=== PATIENT | male | born 1935 | race Caucasian/White ===

== ENCOUNTER 2018-01-03 12:59 | Emergency (ER) | payer OTHER ==
[~2018-01-03] VITALS: Ht 170.2 cm; Wt 93.9 kg
[~2018-01-03 12:59] MED LIST: GLYB5TAB7 PO; IBUP-1017 PO; LISI-600 PO; SIMV40TA5 PO
[2018-01-03 13:39] VITALS: BP_SYST 95
--- NOTE | 2018-01-03 13:50 | NUR ---
Placed in room 4 . Placed on rubber washer, blood pressure machine and pulse oximeter. To gown for exam. Side rails up. Report received from EDUARD Ramirez.
[2018-01-03 14:14] LABS: ANION GAP 11 (5-15); CALCIUM 9.5 mg/dL (8.4-11.0); CHLORIDE 100 mmol/L (98-107); CREATININE 1.59 mg/dL (0.55-1.30); GLUCOSE 81 mg/dL (70-99); POTASSIUM 4.7 mmol/L (3.5-5.1); SODIUM SERUM 135 mmol/L (136-145); UREA NITROGEN, BLOOD 25 mg/dL (8-21)
[2018-01-03] MEDS ORDERED: KETOROLAC TROMETHAMINE 30 MG VIAL IM ONE (14:15)
[2018-01-03 14:18] LABS: HEMATOCRIT 40.3 % (36-54); HEMOGLOBIN 13.1 g/dL (14.0-18.0); MEAN CORPUSCULAR HEMOGLOBIN 30 pg (27-31); MEAN CORPUSCULAR HGB CONC 33 % (32-36); MEAN CORPUSCULAR VOLUME 91 fL (79.0-98.0); PLATELET COUNT (AUTO) 255 K/uL (130-430); RED BLOOD CELL COUNT(AUTO) 4.42 MIL/uL (4.2-6.2); RED CELL DISTRIBUTION WIDTH 13.2 % (9.0-15.0); WHITE BLOOD COUNT (AUTO) 11.8 K/uL (4.8-10.8)
[2018-01-03 14:19] LABS: ALANINE AMINOTRANSFERASE 48 U/L (12-78); ALBUMIN 2.9 g/dL (3.4-4.8); ASPARTATE AMINOTRANSFERASE 35 U/L (10-37); TOTAL BILIRUBIN 0.6 mg/dL (0.0-1.0)
--- NOTE | 2018-01-03 14:27 | NUR ---
ER at bedside examining patient.
--- NOTE | 2018-01-03 14:27 | NUR ---
Pt presents to ED with body achesx 1 day. is not sure if he had a temperature- She didnt have a thermometer, but he felt "warm". Pt denies dizziness, lightheadedness, trauma. VSS. Pt is A&Ox4
--- NOTE | 2018-01-03 14:48 | NUR ---
Note undone in EDM - 01/03/18 at 1454 by [email or web address] Md discontinued ordered meds- Asa, and Ntg since both were given on the field. Pt cp is 2/10 and tolerable.
[2018-01-03 14:52] LABS: BAND % (MANUAL) 4 % (0-6); LYMPHOCYTES % (MANUAL) 9 % (20-46)
[2018-01-03 14:53] LABS: BASOPHILS % (MANUAL) 0 % (0-2); EOSINOPHILS % (MANUAL) 3 % (0-7); MONOCYTES % (MANUAL) 3 % (0-11)
--- NOTE | 2018-01-03 15:07 | NUR ---
Received from [place]ira CHAPA
--- NOTE | 2018-01-03 15:30 | NUR ---
Tamiflu administered. Pt tolerated well. No adverse reactions noted.
--- NOTE | 2018-01-03 15:35 | NUR ---
Pt ambulated to bathroom in non slip shoes with steady gait to provide urine sample.
[2018-01-03 15:59] LABS: BILIRUBIN,URINE NEGATIVE (NEGATIVE); BLOOD, URINE NEGATIVE (NEGATIVE); CLARITY/URINE HAZY (CLEAR); COLOR,URINE YELLOW (YELLOW); GLUCOSE,URINE NEGATIVE (NEGATIVE); KETONES,URINE NEGATIVE (NEGATIVE); LEUKOCYTE ESTERASE ,URINE NEGATIVE (NEGATIVE); NITRITE, URINE NEGATIVE (NEGATIVE); PROTEIN URINE TRACE (NEGATIVE); UROBILINOGEN,URINE 0.2 (0.2-1.0)
--- NOTE | 2018-01-03 16:20 | NUR ---
Tamiflu administered. PT tolerated well. No adverse reactions noted.
[2018-01-03 16:35] LABS: BACTERIA,URINE FEW /HPF (None Seen); RBC,URINE 0-3 /HPF (0-3)
[2018-01-03 16:36] LABS: HYALINE CASTS, URINE 0-10 /LPF (None Seen); MUCUS,URINE 3+ /LPF (None Seen)
[2018-01-03] MEDS ORDERED: OSELTAMIVIR PHOSPHATE 75 MG CAPSULE PO ONE (16:45)
--- NOTE | 2018-01-03 17:10 | NUR ---
Patient given written and verbal discharge instructions and verbalizes understanding. ER MD Trotter discussed with patient the results and treatment provided. Patient in stable condition. ID arm band removed. IV catheter removed intact and dressing applied, no active bleeding. Rx of Tamiflu given. Patient educated on pain management and to follow up with PMD. Pain Scale 0. Opportunity for questions provided and answered. Medication side effect fact sheet provided.
[2018-01-03 17:11] VITALS: BP_SYST 115
== END 2018-01-03 17:10 | disposition home or self-care (01) ==
LOC: SED 12:59
DX: J11.1 Influenza due to unidentified influenza virus with other respiratory manifestations (principal); E11.9 Type 2 diabetes mellitus without complications; I10 Essential (primary) hypertension; E78.00 Pure hypercholesterolemia, unspecified; M54.2 Cervicalgia; M54.6 Pain in thoracic spine; M54.5 Low back pain; Z98.890 Other specified postprocedural states; Z79.899 Other long term (current) drug therapy
CPT/HCPCS: 36415; 71250; 72125; 74176; 80053; 81000; 85007; 85027; 86710; 96372; 99285; G9035; J1885

== ENCOUNTER 2018-01-28 09:12 | Emergency (ER) | payer OTHER ==
[~2018-01-28] VITALS: Ht 170.2 cm; Wt 89.8 kg
[2018-01-28 09:12] VITALS: BP_SYST 107
--- NOTE | 2018-01-28 09:15 | NUR ---
Pt placed in bed 3
--- NOTE | 2018-01-28 09:20 | NUR ---
Pt C/O urinary frequncy and pressure upon urination since last night. The pt states he was using the restroom every 5 minutes preventing him from sleeping. Pt would like to be evaluated. is at bedside and is available to answer questions.
[2018-01-28] MEDS ORDERED: PIPERACILLIN/TAZO 3.38 GM in NS 50 ML IV ONE (09:45)
--- NOTE | 2018-01-28 09:45 | NUR ---
ER at bedside examining patient.
[2018-01-28] MEDS ORDERED: PHENAZOPYRIDINE HCL 100 MG TABLET PO ONE (10:00)
[2018-01-28] MEDS ORDERED: PIPERACILLIN/TAZOBACTAM 3.375 GM/VIAL (ZOSYN) IV ONE (10:03)
--- NOTE | 2018-01-28 10:03 | NUR ---
Medication given to pt, tolerated well
[2018-01-28 10:33] LABS: BASOPHILS % (AUTO) 0.4 % (0.0-2.0); EOSINOPHILS # (AUTO) 0.6 K/uL (0.0-0.4); EOSINOPHILS % (AUTO) 6.3 % (0.0-4.0); HEMATOCRIT 38.4 % (36-54); HEMOGLOBIN 12.6 g/dL (14.0-18.0); LYMPHOCYTES % (AUTO) 11.8 % (20.5-51.5); MEAN CORPUSCULAR HEMOGLOBIN 30 pg (27-31); MEAN CORPUSCULAR HGB CONC 33 % (32-36); MEAN CORPUSCULAR VOLUME 91 fL (79.0-98.0); MONOCYTES # (AUTO) 0.4 K/uL (0.0-1.0); MONOCYTES % (AUTO) 4.6 % (1.7-9.3); NEUTROPHILS # (AUTO) 6.9 K/uL (1.8-7.7); NEUTROPHILS % (AUTO) 76.9 % (40.0-70.0); PLATELET COUNT (AUTO) 279 K/uL (130-430); RED BLOOD CELL COUNT(AUTO) 4.22 MIL/uL (4.2-6.2); RED CELL DISTRIBUTION WIDTH 12.6 % (9.0-15.0); WHITE BLOOD COUNT (AUTO) 8.9 K/uL (4.8-10.8)
[2018-01-28 10:34] LABS: BILIRUBIN,URINE NEGATIVE (NEGATIVE); CLARITY/URINE CLEAR (CLEAR); COLOR,URINE YELLOW (YELLOW); GLUCOSE,URINE NEGATIVE (NEGATIVE); KETONES,URINE NEGATIVE (NEGATIVE); LEUKOCYTE ESTERASE ,URINE NEGATIVE (NEGATIVE); NITRITE, URINE NEGATIVE (NEGATIVE); PROTEIN URINE NEGATIVE (NEGATIVE); UROBILINOGEN,URINE 0.2 (0.2-1.0)
[2018-01-28 10:44] LABS: PROTHROMBIN TIME 10.1 SECS (9.5-12.5)
[2018-01-28 10:46] LABS: BLOOD, URINE TRACE (NEGATIVE)
[2018-01-28 11:00] LABS: ANION GAP 8 (5-15); CALCIUM 9.2 mg/dL (8.4-11.0); CHLORIDE 100 mmol/L (98-107); CREATININE 1.88 mg/dL (0.55-1.30); GLUCOSE 135 mg/dL (70-99); POTASSIUM 4.5 mmol/L (3.5-5.1); SODIUM SERUM 133 mmol/L (136-145); UREA NITROGEN, BLOOD 27 mg/dL (8-21)
[2018-01-28 11:01] LABS: ALANINE AMINOTRANSFERASE 72 U/L (12-78); ALBUMIN 2.4 g/dL (3.4-4.8); ASPARTATE AMINOTRANSFERASE 60 U/L (10-37); TOTAL BILIRUBIN 0.5 mg/dL (0.0-1.0)
[2018-01-28] MEDS ORDERED: NACL 0.9% 1,000 ML IV ONE (11:15)
[2018-01-28 12:29] LABS: BACTERIA,URINE RARE /HPF (None Seen); WBC,URINE 0-3 /HPF (0-3)
[2018-01-28 13:33] VITALS: BP_SYST 103
--- NOTE | 2018-01-28 13:33 | NUR ---
Patient given written and verbal discharge instructions and verbalizes understanding. ER MD discussed with patient the results and treatment provided. Patient in stable condition. ID arm band removed. IV catheter removed intact and dressing applied, no active bleeding. Rx of pyridium and bactrim given. Patient educated on pain management and to follow up with PMD. Pain Scale 3. Opportunity for questions provided and answered.
== END 2018-01-28 13:33 | disposition home or self-care (01) ==
LOC: SED 09:12
DX: N39.0 Urinary tract infection, site not specified (principal); E78.00 Pure hypercholesterolemia, unspecified; E11.9 Type 2 diabetes mellitus without complications; I10 Essential (primary) hypertension; Z79.899 Other long term (current) drug therapy
CPT/HCPCS: 36415; 74176; 80053; 81000; 83605; 85025; 85610; 87040; 96365; 99285; J2543; J7030

== ENCOUNTER 2018-09-10 18:21 | Inpatient (IN) | payer OTHER ==
[~2018-09-10] VITALS: Ht 170.2 cm; Wt 80.7 kg
[2018-09-10 18:25] VITALS: BP_SYST 150
[2018-09-10] MEDS ORDERED: AMI200 PO (19:11)
[2018-09-10] MEDS ORDERED: PRED5TAB PO (19:11)
[2018-09-10] MEDS ORDERED: FAMO-132 PO (19:11)
[2018-09-10] MEDS ORDERED: NOR10 PO (19:11)
[2018-09-10] MEDS ORDERED: GLIP5TAB26 PO (19:11)
[2018-09-10] MEDS ORDERED: APIX2.5T PO (19:11)
[2018-09-10 19:19] LABS: BASOPHILS % (AUTO) 0.1 % (0.0-2.0); EOSINOPHILS % (AUTO) 0.2 % (0.0-4.0); HEMATOCRIT 33.6 % (36-54); HEMOGLOBIN 10.9 g/dL (14.0-18.0); LYMPHOCYTES # (AUTO) 0.6 K/uL (1.0-5.5); LYMPHOCYTES % (AUTO) 6.5 % (20.5-51.5); MEAN CORPUSCULAR HEMOGLOBIN 29 pg (27-31); MEAN CORPUSCULAR HGB CONC 33 % (32-36); MEAN CORPUSCULAR VOLUME 88 fL (79.0-98.0); MONOCYTES # (AUTO) 0.6 K/uL (0.0-1.0); NEUTROPHILS # (AUTO) 7.9 K/uL (1.8-7.7); NEUTROPHILS % (AUTO) 86.2 % (40.0-70.0); PLATELET COUNT (AUTO) 187 K/uL (130-430); RED BLOOD CELL COUNT(AUTO) 3.83 MIL/uL (4.2-6.2); RED CELL DISTRIBUTION WIDTH 19.4 % (9.0-15.0); WHITE BLOOD COUNT (AUTO) 9.2 K/uL (4.8-10.8)
[2018-09-10 19:23] LABS: ANION GAP 11 (5-15); CHLORIDE 101 mmol/L (98-107); CREATININE 3.22 mg/dL (0.55-1.30); GLUCOSE 67 mg/dL (70-99); POTASSIUM 4.1 mmol/L (3.5-5.1); SODIUM SERUM 136 mmol/L (136-145); UREA NITROGEN, BLOOD 44 mg/dL (8-21)
[2018-09-10 19:26] LABS: INR 0.9 (0.80-1.20); PROTHROMBIN TIME 9.6 SECS (9.5-12.5)
[2018-09-10 19:29] LABS: ALANINE AMINOTRANSFERASE 93 U/L (12-78); ALBUMIN 3.1 g/dL (3.4-4.8); ASPARTATE AMINOTRANSFERASE 61 U/L (10-37); LIPASE 520 U/L (73-393); TOTAL BILIRUBIN 0.3 mg/dL (0.0-1.0)
[2018-09-10 20:40] LABS: BILIRUBIN,URINE NEGATIVE (NEGATIVE); BLOOD, URINE 3+ (NEGATIVE); GLUCOSE,URINE NEGATIVE (NEGATIVE); KETONES,URINE NEGATIVE (NEGATIVE); LEUKOCYTE ESTERASE ,URINE NEGATIVE (NEGATIVE); NITRITE, URINE NEGATIVE (NEGATIVE); PH,URINE 5.5 (5.0-8.0); PROTEIN URINE 1+ (NEGATIVE); UROBILINOGEN,URINE 0.2 (0.2-1.0)
[2018-09-10 20:43] LABS: CLARITY/URINE SLIGHTLY CLOUDY (CLEAR); COLOR,URINE RED (YELLOW)
[2018-09-10 20:44] LABS: BACTERIA,URINE FEW /HPF (None Seen); MUCUS,URINE None Seen /LPF (None Seen); RBC,URINE >100 /HPF (0-3); WBC,URINE 0-3 /HPF (0-3)
[2018-09-10] MEDS ORDERED: MORPHINE 4 MG/ML INJ. SYRINGE IVP ONE (21:30)
[2018-09-10] MEDS ORDERED: 0.45% NACL 1,000 ML IV SCH (22:00)
[2018-09-10] MEDS ORDERED: ACETAMINOPHEN 325 MG TABLET PO PRN (22:00)
[2018-09-10 22:30] VITALS: BP_SYST 134
[2018-09-10] MEDS ORDERED: ONDANSETRON HCL 4 MG/2 ML VIAL IVP PRN (22:30)
[2018-09-10 22:49] VITALS: BP_SYST 134
[2018-09-11] MEDS: D5/0.45 NS 1,000 ML IV SCH ×2 (00:48→17:10)
[2018-09-11] MEDS: MORPHINE 2 MG/ML INJ. SYRINGE IVP PRN ×2 (00:50→05:38)
[2018-09-11 00:51] VITALS: BP_SYST 134
[2018-09-11] MEDS ORDERED: DEXTROSE 50% JECT 50 ML DISP.SYRIN IVP PRN (01:30)
[2018-09-11] MEDS ORDERED: INSULIN REGULAR, HUMAN 100 UNITS/ML, 10 ML VIAL (humuLIN R) SUBCUT PRN (01:30)
[2018-09-11] MEDS ORDERED: GLUCOSE 15 GM GEL (in 37.5 GM TUBE) PO PRN (01:30)
[2018-09-11 08:06] VITALS: BP_SYST 123
[2018-09-11] MEDS: PANTOPRAZOLE SODIUM 40 MG/VIAL (PROTONIX) IVP SCH (08:46)
[2018-09-11] MEDS: ASPIRIN 81 MG TAB.CHEW PO SCH (08:46)
[2018-09-11] MEDS ORDERED: ENOXAPARIN SODIUM 30 MG/0.3 ML SYRINGE SUBCUT SCH (09:00)
[2018-09-11] MEDS ORDERED: FUROSEMIDE 40 MG/4 ML VIAL IVP SCH (09:00)
[2018-09-11] MEDS ORDERED: POTASSIUM CHLORIDE 20 MEQ/PKT PACKET PO SCH (09:00)
[2018-09-11] MEDS: amLODIPine BESYLATE 10 MG TABLET PO SCH (09:20)
[2018-09-11] MEDS: TAMSULOSIN HCL 0.4 MG CAP PO SCH (09:20)
[2018-09-11] MEDS: PREDNISONE 5 MG TABLET PO SCH (09:21)
[2018-09-11] MEDS: AMIODARONE HCL 200 MG TABLET PO SCH (09:21)
[2018-09-11] MEDS: APIXABAN 2.5 MG TABLET PO SCH ×2 (09:22→20:28)
[2018-09-11 09:34] LABS: BASOPHILS % (AUTO) 0.2 % (0.0-2.0); EOSINOPHILS # (AUTO) 0.1 K/uL (0.0-0.4); EOSINOPHILS % (AUTO) 0.9 % (0.0-4.0); HEMATOCRIT 30.7 % (36-54); HEMOGLOBIN 9.9 g/dL (14.0-18.0); LYMPHOCYTES # (AUTO) 0.9 K/uL (1.0-5.5); LYMPHOCYTES % (AUTO) 14.3 % (20.5-51.5); MEAN CORPUSCULAR HEMOGLOBIN 29 pg (27-31); MEAN CORPUSCULAR HGB CONC 32 % (32-36); MEAN CORPUSCULAR VOLUME 88 fL (79.0-98.0); MONOCYTES # (AUTO) 0.5 K/uL (0.0-1.0); NEUTROPHILS # (AUTO) 4.9 K/uL (1.8-7.7); NEUTROPHILS % (AUTO) 76.6 % (40.0-70.0); PLATELET COUNT (AUTO) 142 K/uL (130-430); RED BLOOD CELL COUNT(AUTO) 3.49 MIL/uL (4.2-6.2); RED CELL DISTRIBUTION WIDTH 19.7 % (9.0-15.0); WHITE BLOOD COUNT (AUTO) 6.3 K/uL (4.8-10.8)
[2018-09-11 09:52] LABS: PROTHROMBIN TIME 9.9 SECS (9.5-12.5)
[2018-09-11 09:58] LABS: ALANINE AMINOTRANSFERASE 64 U/L (12-78); ALBUMIN 2.6 g/dL (3.4-4.8); ANION GAP 7 (5-15); ASPARTATE AMINOTRANSFERASE 29 U/L (10-37); CALCIUM 8.6 mg/dL (8.4-11.0); CHLORIDE 105 mmol/L (98-107); CHOLESTEROL 130 mg/dL (<200); CREATININE 2.65 mg/dL (0.55-1.30); GLUCOSE 89 mg/dL (70-99); HDL CHOLESTEROL 76 mg/dL (>45); LDL CHOLESTEROL 44 mg/dL (<100); LIPASE 264 U/L (73-393); POTASSIUM 3.9 mmol/L (3.5-5.1); SODIUM SERUM 137 mmol/L (136-145); TOTAL BILIRUBIN 0.4 mg/dL (0.0-1.0); TRIGLYCERIDES 45 mg/dL (30-150); UREA NITROGEN, BLOOD 39 mg/dL (8-21)
[2018-09-11 11:26] VITALS: BP_SYST 123
[2018-09-11] MEDS: ALBUTEROL SULFATE 0.083% 2.5 MG/3 ML VIAL.NEB INH SCH ×3 (15:00→23:21)
[2018-09-11 16:00] VITALS: BP_SYST 130
[2018-09-11] MEDS: INSULIN REGULAR, HUMAN 100 UNITS/ML, 10 ML VIAL (humuLIN R) SUBCUT PRN ×2 (16:39→20:31)
[2018-09-11 17:06] VITALS: BP_SYST 130
[2018-09-11 20:00] VITALS: BP_SYST 106
[2018-09-12 00:45] VITALS: BP_SYST 141
[2018-09-12] MEDS: ALBUTEROL SULFATE 0.083% 2.5 MG/3 ML VIAL.NEB INH SCH ×5 (03:35→23:05)
[2018-09-12] MEDS: ASPIRIN 81 MG TAB.CHEW PO SCH (08:24)
[2018-09-12] MEDS: PREDNISONE 5 MG TABLET PO SCH (08:24)
[2018-09-12] MEDS: amLODIPine BESYLATE 10 MG TABLET PO SCH (08:25)
[2018-09-12] MEDS: APIXABAN 2.5 MG TABLET PO SCH ×2 (08:25→20:45)
[2018-09-12] MEDS: TAMSULOSIN HCL 0.4 MG CAP PO SCH (08:25)
[2018-09-12] MEDS: PANTOPRAZOLE SODIUM 40 MG/VIAL (PROTONIX) IVP SCH (08:26)
[2018-09-12] MEDS: AMIODARONE HCL 200 MG TABLET PO SCH (08:26)
[2018-09-12 08:30] VITALS: BP_SYST 139
[2018-09-12 09:36] LABS: BASOPHILS % (AUTO) 0.1 % (0.0-2.0); EOSINOPHILS % (AUTO) 0.5 % (0.0-4.0); HEMATOCRIT 28.8 % (36-54); HEMOGLOBIN 9.3 g/dL (14.0-18.0); LYMPHOCYTES # (AUTO) 1.1 K/uL (1.0-5.5); LYMPHOCYTES % (AUTO) 17.6 % (20.5-51.5); MEAN CORPUSCULAR HEMOGLOBIN 28 pg (27-31); MEAN CORPUSCULAR HGB CONC 32 % (32-36); MEAN CORPUSCULAR VOLUME 88 fL (79.0-98.0); MONOCYTES # (AUTO) 0.4 K/uL (0.0-1.0); MONOCYTES % (AUTO) 7.5 % (1.7-9.3); NEUTROPHILS # (AUTO) 4.4 K/uL (1.8-7.7); NEUTROPHILS % (AUTO) 74.3 % (40.0-70.0); PLATELET COUNT (AUTO) 121 K/uL (130-430); RED BLOOD CELL COUNT(AUTO) 3.27 MIL/uL (4.2-6.2); RED CELL DISTRIBUTION WIDTH 19.3 % (9.0-15.0)
[2018-09-12 09:41] LABS: ALANINE AMINOTRANSFERASE 50 U/L (12-78); ALBUMIN 2.6 g/dL (3.4-4.8); ANION GAP 7 (5-15); ASPARTATE AMINOTRANSFERASE 20 U/L (10-37); CALCIUM 8.6 mg/dL (8.4-11.0); CHLORIDE 103 mmol/L (98-107); CHOLESTEROL 140 mg/dL (<200); CREATININE 2.26 mg/dL (0.55-1.30); GLUCOSE 138 mg/dL (70-99); HDL CHOLESTEROL 74 mg/dL (>45); LDL CHOLESTEROL 49 mg/dL (<100); LIPASE 169 U/L (73-393); POTASSIUM 3.7 mmol/L (3.5-5.1); SODIUM SERUM 136 mmol/L (136-145); TOTAL BILIRUBIN 0.4 mg/dL (0.0-1.0); TRIGLYCERIDES 45 mg/dL (30-150); UREA NITROGEN, BLOOD 31 mg/dL (8-21)
[2018-09-12 09:47] LABS: TOTAL IRON BIND. CAPACITY 181 ug/dL (250-450)
[2018-09-12 11:26] VITALS: BP_SYST 134
[2018-09-12] MEDS: INSULIN REGULAR, HUMAN 100 UNITS/ML, 10 ML VIAL (humuLIN R) SUBCUT PRN ×3 (11:30→20:44)
[2018-09-12] MEDS: D5/0.45 NS 1,000 ML IV SCH (13:14)
[2018-09-12 15:07] LABS: BILIRUBIN,URINE NEGATIVE (NEGATIVE); BLOOD, URINE 3+ (NEGATIVE); CLARITY/URINE SL CLOUDY (CLEAR); GLUCOSE,URINE TRACE (NEGATIVE); KETONES,URINE NEGATIVE (NEGATIVE); LEUKOCYTE ESTERASE ,URINE TRACE (NEGATIVE); NITRITE, URINE NEGATIVE (NEGATIVE); PH,URINE 5.5 (5.0-8.0); PROTEIN URINE 1+ (NEGATIVE); UROBILINOGEN,URINE 0.2 (0.2-1.0)
[2018-09-12 15:09] LABS: COLOR,URINE YELLOW (YELLOW)
[2018-09-12 15:17] LABS: RBC,URINE >100 /HPF (0-3); WBC,URINE 0-3 /HPF (0-3)
[2018-09-12 15:18] LABS: BACTERIA,URINE FEW /HPF (None Seen); MUCUS,URINE 1+ /LPF (None Seen)
[2018-09-12 15:22] VITALS: BP_SYST 149
[2018-09-12 20:00] VITALS: BP_SYST 132
[2018-09-13 00:54] VITALS: BP_SYST 129
[2018-09-13] MEDS: ALBUTEROL SULFATE 0.083% 2.5 MG/3 ML VIAL.NEB INH SCH ×6 (02:57→23:35)
[2018-09-13 06:45] LABS: BASOPHILS % (AUTO) 0.1 % (0.0-2.0); EOSINOPHILS % (AUTO) 0.4 % (0.0-4.0); HEMATOCRIT 27.7 % (36-54); HEMOGLOBIN 9.2 g/dL (14.0-18.0); LYMPHOCYTES # (AUTO) 0.9 K/uL (1.0-5.5); LYMPHOCYTES % (AUTO) 15.8 % (20.5-51.5); MEAN CORPUSCULAR HEMOGLOBIN 29 pg (27-31); MEAN CORPUSCULAR HGB CONC 33 % (32-36); MEAN CORPUSCULAR VOLUME 87 fL (79.0-98.0); MONOCYTES # (AUTO) 0.4 K/uL (0.0-1.0); MONOCYTES % (AUTO) 6.7 % (1.7-9.3); NEUTROPHILS # (AUTO) 4.4 K/uL (1.8-7.7); PLATELET COUNT (AUTO) 119 K/uL (130-430); RED BLOOD CELL COUNT(AUTO) 3.18 MIL/uL (4.2-6.2); RED CELL DISTRIBUTION WIDTH 19.6 % (9.0-15.0); WHITE BLOOD COUNT (AUTO) 5.7 K/uL (4.8-10.8)
[2018-09-13 07:33] LABS: ALANINE AMINOTRANSFERASE 60 U/L (12-78); ALBUMIN 2.5 g/dL (3.4-4.8); ANION GAP 5 (5-15); ASPARTATE AMINOTRANSFERASE 32 U/L (10-37); CALCIUM 8.6 mg/dL (8.4-11.0); CHLORIDE 106 mmol/L (98-107); CHOLESTEROL 133 mg/dL (<200); CREATININE 1.86 mg/dL (0.55-1.30); GLUCOSE 91 mg/dL (70-99); HDL CHOLESTEROL 73 mg/dL (>45); LDL CHOLESTEROL 45 mg/dL (<100); LIPASE 251 U/L (73-393); POTASSIUM 3.7 mmol/L (3.5-5.1); SODIUM SERUM 137 mmol/L (136-145); TOTAL BILIRUBIN 0.4 mg/dL (0.0-1.0); TRIGLYCERIDES 25 mg/dL (30-150); UREA NITROGEN, BLOOD 31 mg/dL (8-21)
[2018-09-13 08:00] VITALS: BP_SYST 136
[2018-09-13] MEDS: PREDNISONE 5 MG TABLET PO SCH (10:23)
[2018-09-13] MEDS: TAMSULOSIN HCL 0.4 MG CAP PO SCH (10:23)
[2018-09-13] MEDS: amLODIPine BESYLATE 10 MG TABLET PO SCH (10:24)
[2018-09-13] MEDS: AMIODARONE HCL 200 MG TABLET PO SCH (10:25)
[2018-09-13] MEDS: PANTOPRAZOLE SODIUM 40 MG/VIAL (PROTONIX) IVP SCH (10:25)
[2018-09-13 12:40] VITALS: BP_SYST 131
[2018-09-13 16:26] VITALS: BP_SYST 142
[2018-09-13] MEDS: D5/0.45 NS 1,000 ML IV SCH (17:29)
[2018-09-13] MEDS: ASPIRIN 81 MG TAB.CHEW PO SCH (17:32)
[2018-09-13] MEDS: APIXABAN 2.5 MG TABLET PO SCH ×2 (17:33→21:00)
[2018-09-13] MEDS: INSULIN REGULAR, HUMAN 100 UNITS/ML, 10 ML VIAL (humuLIN R) SUBCUT PRN ×2 (17:35→21:04)
[2018-09-13 20:00] VITALS: BP_SYST 136
[2018-09-14] MEDS: ALBUTEROL SULFATE 0.083% 2.5 MG/3 ML VIAL.NEB INH SCH ×3 (02:21→11:00)
[2018-09-14 03:00] VITALS: BP_SYST 118
[2018-09-14 03:07] LABS: FOLATE (FOLIC ACID) 6.5 ng/mL (>3.0)
[2018-09-14] MEDS: TAMSULOSIN HCL 0.4 MG CAP PO SCH (08:57)
[2018-09-14] MEDS: ASPIRIN 81 MG TAB.CHEW PO SCH (08:57)
[2018-09-14] MEDS: PREDNISONE 5 MG TABLET PO SCH (08:57)
[2018-09-14] MEDS: AMIODARONE HCL 200 MG TABLET PO SCH (08:58)
[2018-09-14] MEDS: APIXABAN 2.5 MG TABLET PO SCH (08:59)
[2018-09-14] MEDS: amLODIPine BESYLATE 10 MG TABLET PO SCH (08:59)
[2018-09-14 11:22] VITALS: BP_SYST 128
[2018-09-14] MEDS ORDERED: DUTA0.5C PO (11:55)
[2018-09-14] MEDS ORDERED: TAMS-11 PO (11:57)
[2018-09-14 12:56] VITALS: BP_SYST 128
[2018-10-02] MEDS ORDERED: LACT1CAP57 PO (09:54)
[2018-10-02] MEDS ORDERED: LEVAQUIN PO (09:54)
== END 2018-09-14 13:30 | disposition home health service (06) | DRG 438 ==
LOC: SED 18:21 → STU 22:17 → SMU 09-13 09:54
PROVIDERS: ADMIT Internal Medicine; ATTEND Internal Medicine
DX: K85.90 Acute pancreatitis without necrosis or infection, unspecified (principal); I50.33 Acute on chronic diastolic (congestive) heart failure; N17.9 Acute kidney failure, unspecified; I13.0 Hypertensive heart and chronic kidney disease with heart failure and stage 1 through stage 4 chronic kidney disease, or unspecified chronic kidney disease; I48.91 Unspecified atrial fibrillation; D64.9 Anemia, unspecified; E11.22 Type 2 diabetes mellitus with diabetic chronic kidney disease; N18.9 Chronic kidney disease, unspecified; E78.5 Hyperlipidemia, unspecified; F03.90 Unspecified dementia, unspecified severity, without behavioral disturbance, psychotic disturbance, mood disturbance, and anxiety; R29.6 Repeated falls; F10.10 Alcohol abuse, uncomplicated; N40.1 Benign prostatic hyperplasia with lower urinary tract symptoms; E66.9 Obesity, unspecified; R33.8 Other retention of urine; Z96.651 Presence of right artificial knee joint; K57.90 Diverticulosis of intestine, part unspecified, without perforation or abscess without bleeding; H91.90 Unspecified hearing loss, unspecified ear; S90.31XA Contusion of right foot, initial encounter; R55 Syncope and collapse; W01.0XXA Fall on same level from slipping, tripping and stumbling without subsequent striking against object, initial encounter; Y93.89 Activity, other specified; Y92.89 Other specified places as the place of occurrence of the external cause; Y99.8 Other external cause status; Z79.899 Other long term (current) drug therapy; Z79.52 Long term (current) use of systemic steroids; Z68.27 Body mass index [BMI] 27.0-27.9, adult; Z79.84 Long term (current) use of oral hypoglycemic drugs
CPT/HCPCS: 36415; 70450-TC; 71045; 73030; 73620; 76700-TC; 80053; 80061; 81000-TC; 82607; 82728; 82746; 82962; 83036; 83540-TC; 83550-TC; 83605; 83690-TC; 83880; 85025; 85610-TC; 87040-TC; 93005; 93306; 94640; 94760; 96374; 97116-GP; 97530-GP; 99285; C9113; G0378; J1650; J1815; J1940; J2270; J7512; J7613

== ENCOUNTER 2018-09-19 19:02 | Inpatient (IN) | payer OTHER ==
[~2018-09-19] VITALS: Ht 170.2 cm; Wt 83.5 kg
[~2018-09-19 19:02] MED LIST changes: +AMI200 PO; +APIX2.5T PO; +DUTA0.5C PO; +FAMO-132 PO; +GLIP5TAB26 PO; -GLYB5TAB7 PO; -IBUP-1017 PO; -LISI-600 PO; +NOR10 PO; +PRED5TAB PO; -SIMV40TA5 PO; +TAMS-11 PO
[2018-09-19 19:15] VITALS: BP_SYST 138
[2018-09-19] MEDS ORDERED: PIPERACILLIN/TAZO 3.375 GM in NS 50 ML IV ONE (20:00)
[2018-09-19 20:24] LABS: BASOPHILS % (AUTO) 0.1 % (0.0-2.0); EOSINOPHILS % (AUTO) 0.1 % (0.0-4.0); HEMATOCRIT 28.7 % (36-54); HEMOGLOBIN 9.3 g/dL (14.0-18.0); LYMPHOCYTES # (AUTO) 0.8 K/uL (1.0-5.5); LYMPHOCYTES % (AUTO) 9.9 % (20.5-51.5); MEAN CORPUSCULAR HEMOGLOBIN 29 pg (27-31); MEAN CORPUSCULAR HGB CONC 33 % (32-36); MEAN CORPUSCULAR VOLUME 88 fL (79.0-98.0); MONOCYTES # (AUTO) 0.5 K/uL (0.0-1.0); MONOCYTES % (AUTO) 5.7 % (1.7-9.3); NEUTROPHILS # (AUTO) 6.8 K/uL (1.8-7.7); NEUTROPHILS % (AUTO) 84.2 % (40.0-70.0); PLATELET COUNT (AUTO) 163 K/uL (130-430); RED BLOOD CELL COUNT(AUTO) 3.26 MIL/uL (4.2-6.2); RED CELL DISTRIBUTION WIDTH 19.6 % (9.0-15.0)
[2018-09-19 20:33] LABS: ANION GAP 8 (5-15); CHLORIDE 104 mmol/L (98-107); CREATININE 3.26 mg/dL (0.55-1.30); GLUCOSE 62 mg/dL (70-99); POTASSIUM 4.2 mmol/L (3.5-5.1); SODIUM SERUM 136 mmol/L (136-145); UREA NITROGEN, BLOOD 58 mg/dL (8-21)
[2018-09-19 20:38] LABS: ALANINE AMINOTRANSFERASE 71 U/L (12-78); ALBUMIN 3.3 g/dL (3.4-4.8); ASPARTATE AMINOTRANSFERASE 38 U/L (10-37); TOTAL BILIRUBIN 0.4 mg/dL (0.0-1.0)
[2018-09-19] MEDS ORDERED: DEXTROSE 50% JECT 50 ML DISP.SYRIN IVP ONE (20:45)
[2018-09-19] MEDS ORDERED: PIPERACILLIN/TAZOBACTAM 3.375 GM/VIAL (ZOSYN) IV ONE (20:50)
[2018-09-20] MEDS ORDERED: GLIP10TA11 PO (00:28)
[2018-09-20 00:42] LABS: BILIRUBIN,URINE NEGATIVE (NEGATIVE); CLARITY/URINE CLEAR (CLEAR); COLOR,URINE YELLOW (YELLOW); GLUCOSE,URINE NEGATIVE (NEGATIVE); KETONES,URINE NEGATIVE (NEGATIVE); LEUKOCYTE ESTERASE ,URINE NEGATIVE (NEGATIVE); NITRITE, URINE NEGATIVE (NEGATIVE); PH,URINE 6.5 (5.0-8.0); PROTEIN URINE TRACE (NEGATIVE); UROBILINOGEN,URINE 0.2 (0.2-1.0)
[2018-09-20 00:43] LABS: BLOOD, URINE TRACE (NEGATIVE)
[2018-09-20 00:46] LABS: WBC,URINE 0-3 /HPF (0-3)
[2018-09-20 00:47] LABS: BACTERIA,URINE FEW /HPF (None Seen)
[2018-09-20 01:19] VITALS: BP_SYST 150
[2018-09-20] MEDS ORDERED: ALBUTEROL SULFATE 0.083% 2.5 MG/3 ML VIAL.NEB INH PRN (06:15)
[2018-09-20] MEDS ORDERED: INSULIN ASPART 100 UNITS/ML, 10 ML VIAL (NovoLOG) SUBCUT PRN (06:15)
[2018-09-20] MEDS ORDERED: ONDANSETRON HCL 4 MG/2 ML VIAL IVP PRN (06:15)
[2018-09-20] MEDS ORDERED: ACETAMINOPHEN 325 MG TABLET PO PRN (06:15)
[2018-09-20] MEDS ORDERED: D5W 1,000 ML IV PRN (06:43)
[2018-09-20] MEDS ORDERED: DEXTROSE 50% JECT 50 ML DISP.SYRIN ONE (06:43)
[2018-09-20] MEDS ORDERED: INSULIN LISPRO SLIDING SCALE 100 UNITS/ML VIAL (humaLOG) SUBCUT PRN (06:45)
[2018-09-20] MEDS ORDERED: GLUCOSE 15 GM GEL (in 37.5 GM TUBE) PO PRN (06:45)
[2018-09-20 07:20] LABS: BASOPHILS % (AUTO) 0.3 % (0.0-2.0); EOSINOPHILS % (AUTO) 0.5 % (0.0-4.0); HEMATOCRIT 28.6 % (36-54); HEMOGLOBIN 9.3 g/dL (14.0-18.0); LYMPHOCYTES # (AUTO) 1.2 K/uL (1.0-5.5); LYMPHOCYTES % (AUTO) 16.7 % (20.5-51.5); MEAN CORPUSCULAR HEMOGLOBIN 29 pg (27-31); MEAN CORPUSCULAR HGB CONC 33 % (32-36); MEAN CORPUSCULAR VOLUME 88 fL (79.0-98.0); MONOCYTES # (AUTO) 0.5 K/uL (0.0-1.0); MONOCYTES % (AUTO) 7.4 % (1.7-9.3); NEUTROPHILS # (AUTO) 5.3 K/uL (1.8-7.7); NEUTROPHILS % (AUTO) 75.1 % (40.0-70.0); PLATELET COUNT (AUTO) 157 K/uL (130-430); RED BLOOD CELL COUNT(AUTO) 3.23 MIL/uL (4.2-6.2); WHITE BLOOD COUNT (AUTO) 7.1 K/uL (4.8-10.8)
[2018-09-20] MEDS: DEXTROSE 50% JECT 50 ML DISP.SYRIN IVP PRN ×2 (07:25→11:10)
[2018-09-20 07:31] LABS: ANION GAP 9 (5-15); CALCIUM 8.7 mg/dL (8.4-11.0); CHLORIDE 104 mmol/L (98-107); GLUCOSE 127 mg/dL (70-99); POTASSIUM 3.9 mmol/L (3.5-5.1); SODIUM SERUM 139 mmol/L (136-145); UREA NITROGEN, BLOOD 54 mg/dL (8-21)
[2018-09-20 07:39] LABS: ALANINE AMINOTRANSFERASE 60 U/L (12-78); ALBUMIN 2.7 g/dL (3.4-4.8); ASPARTATE AMINOTRANSFERASE 27 U/L (10-37); TOTAL BILIRUBIN 0.5 mg/dL (0.0-1.0)
[2018-09-20 08:11] VITALS: BP_SYST 126
[2018-09-20] MEDS: FAMOTIDINE 20 MG TABLET PO SCH (08:12)
[2018-09-20] MEDS: DUTASTERIDE 0.5 MG CAPSULE (AVODART) PO SCH (08:12)
[2018-09-20] MEDS: TAMSULOSIN HCL 0.4 MG CAP PO SCH (08:12)
[2018-09-20] MEDS: APIXABAN 2.5 MG TABLET PO SCH ×2 (08:13→21:49)
[2018-09-20] MEDS ORDERED: amLODIPine BESYLATE 10 MG TABLET PO SCH (09:00)
[2018-09-20] MEDS ORDERED: PREDNISONE 5 MG TABLET PO SCH (09:00)
[2018-09-20] MEDS ORDERED: AMIODARONE HCL 200 MG TABLET PO SCH (09:00)
[2018-09-20 12:01] VITALS: BP_SYST 131
[2018-09-20 12:08] VITALS: BP_SYST 131
[2018-09-20] MEDS ORDERED: NACL 0.9% 1,000 ML IV ONE (13:00)
[2018-09-20 16:02] VITALS: BP_SYST 126
[2018-09-20 22:36] VITALS: BP_SYST 135
[2018-09-21 00:10] VITALS: BP_SYST 120
[2018-09-21 04:05] VITALS: BP_SYST 126
[2018-09-21 05:04] LABS: BASOPHILS % (AUTO) 0.2 % (0.0-2.0); EOSINOPHILS % (AUTO) 0.5 % (0.0-4.0); HEMOGLOBIN 8.8 g/dL (14.0-18.0); LYMPHOCYTES # (AUTO) 1.1 K/uL (1.0-5.5); LYMPHOCYTES % (AUTO) 18.4 % (20.5-51.5); MEAN CORPUSCULAR HEMOGLOBIN 29 pg (27-31); MEAN CORPUSCULAR HGB CONC 33 % (32-36); MEAN CORPUSCULAR VOLUME 88 fL (79.0-98.0); MONOCYTES # (AUTO) 0.4 K/uL (0.0-1.0); MONOCYTES % (AUTO) 6.5 % (1.7-9.3); NEUTROPHILS # (AUTO) 4.4 K/uL (1.8-7.7); NEUTROPHILS % (AUTO) 74.4 % (40.0-70.0); PLATELET COUNT (AUTO) 140 K/uL (130-430); RED BLOOD CELL COUNT(AUTO) 3.06 MIL/uL (4.2-6.2); RED CELL DISTRIBUTION WIDTH 19.5 % (9.0-15.0); WHITE BLOOD COUNT (AUTO) 5.9 K/uL (4.8-10.8)
[2018-09-21 06:50] LABS: ALANINE AMINOTRANSFERASE 50 U/L (12-78); ALBUMIN 2.4 g/dL (3.4-4.8); ANION GAP 11 (5-15); ASPARTATE AMINOTRANSFERASE 23 U/L (10-37); CALCIUM 8.4 mg/dL (8.4-11.0); CHLORIDE 104 mmol/L (98-107); CREATININE 3.16 mg/dL (0.55-1.30); GLUCOSE 106 mg/dL (70-99); POTASSIUM 3.9 mmol/L (3.5-5.1); SODIUM SERUM 140 mmol/L (136-145); THYROID STIMULATING HORMONE 23.27 uIu/mL (0.36-3.74); TOTAL BILIRUBIN 0.3 mg/dL (0.0-1.0); UREA NITROGEN, BLOOD 46 mg/dL (8-21)
[2018-09-21] MEDS ORDERED: PREDNISONE 5 MG TABLET PO SCH (08:00)
[2018-09-21 08:39] LABS: CHOLESTEROL 141 mg/dL (<200); HDL CHOLESTEROL 64 mg/dL (>45); LDL CHOLESTEROL 60 mg/dL (<100); TRIGLYCERIDES 55 mg/dL (30-150)
[2018-09-21] MEDS ORDERED: LEVOTHYROXINE SODIUM 0.025 MG TABLET PO ONE (08:45)
[2018-09-21] MEDS: TAMSULOSIN HCL 0.4 MG CAP PO SCH (08:52)
[2018-09-21] MEDS: DUTASTERIDE 0.5 MG CAPSULE (AVODART) PO SCH (08:52)
[2018-09-21] MEDS: FAMOTIDINE 20 MG TABLET PO SCH (08:52)
[2018-09-21] MEDS: APIXABAN 2.5 MG TABLET PO SCH (08:54)
[2018-09-21 09:00] VITALS: BP_SYST 130
[2018-09-21] MEDS ORDERED: 0.45% NACL 1,000 ML IV SCH (10:00)
[2018-09-21 10:54] VITALS: BP_SYST 130
[2018-09-22] MEDS ORDERED: LEVOTHYROXINE SODIUM 0.025 MG TABLET PO SCH (07:00)
== END 2018-09-21 13:50 | disposition home or self-care (01) | DRG 683 ==
LOC: SED 19:02 → STU 09-20 00:31
PROVIDERS: ADMIT Internal Medicine; ATTEND Internal Medicine
DX: N17.9 Acute kidney failure, unspecified (principal); N13.8 Other obstructive and reflux uropathy; I13.0 Hypertensive heart and chronic kidney disease with heart failure and stage 1 through stage 4 chronic kidney disease, or unspecified chronic kidney disease; I50.30 Unspecified diastolic (congestive) heart failure; N18.4 Chronic kidney disease, stage 4 (severe); E03.9 Hypothyroidism, unspecified; E11.22 Type 2 diabetes mellitus with diabetic chronic kidney disease; N40.1 Benign prostatic hyperplasia with lower urinary tract symptoms; Z96.651 Presence of right artificial knee joint; E78.00 Pure hypercholesterolemia, unspecified; E11.649 Type 2 diabetes mellitus with hypoglycemia without coma; R33.8 Other retention of urine; Z91.19 Patient's noncompliance with other medical treatment and regimen; Z79.899 Other long term (current) drug therapy
CPT/HCPCS: 36415; 71045; 80053; 80061; 81000-TC; 82962; 83605; 83690-TC; 83735-TC; 83880; 84443-TC; 84484; 85025; 85610-TC; 85730-TC; 87040-TC; 87081; 87086; 93005; 96365; 96375; 99291; G0378; J2543; J7030; J7512

== ENCOUNTER 2018-10-15 20:33 | Emergency (ER) | payer OTHER ==
[~2018-10-15] VITALS: Ht 170.2 cm; Wt 87.1 kg
[~2018-10-15 20:33] MED LIST changes: +GLIP10TA11 PO; -GLIP5TAB26 PO; +LACT1CAP57 PO; +LEVAQUIN PO
[2018-10-15 20:35] VITALS: BP_SYST 106
--- NOTE | 2018-10-15 21:20 | NUR ---
Called pt name in the WR,unable to locate.
--- NOTE | 2018-10-15 21:25 | NUR ---
Called pt name in the WR,unable to locate.
--- NOTE | 2018-10-15 21:30 | NUR ---
Called pt name in the WR,unable to locate.LWBS
== END 2018-10-15 21:30 | disposition left against medical advice (07) ==
LOC: SED 20:33
DX: R30.0 Dysuria (principal); Z53.21 Procedure and treatment not carried out due to patient leaving prior to being seen by health care provider

== ENCOUNTER 2020-09-13 09:33 | Inpatient (IN) | payer OTHER, SELFPAY ==
[~2020-09-13] VITALS: Ht 172.7 cm; Wt 95.3 kg
[~2020-09-13 09:33] MED LIST changes: -AMI200 PO; +AMIO200T66 PO
[2020-09-13 09:36] VITALS: BP_SYST 145
--- NOTE | 2020-09-13 09:41 | NUR ---
Patient to ER bed 6 to gown for evaluation. Side rails up.
--- NOTE | 2020-09-13 09:41 | NUR ---
ER at bedside examining patient.
--- NOTE | 2020-09-13 09:45 | NUR ---
pt bib ambulance with complaint of generalized weakness Xtoday pt AAOX elevated blood pressure 145/75. pt resting in gurney no distress noted. GCS 15.
--- NOTE | 2020-09-13 09:55 | NUR ---
# 20 gauge angiocath placed to L upper arm. Use of asceptic technique. Opsite placed over site. Blood return noted. Blood for lab drawn from site. Flushed with 10 cc of normal saline. No evidence of infiltration noted. Patient tolerated well.
--- NOTE | 2020-09-13 10:00 | NUR ---
performed in and out catheter for urine collection. sterile technique applied. pt tolerated well.
[2020-09-13 10:08] LABS: BASOPHILS # (AUTO) 0.1 K/uL (0.0-0.2); BASOPHILS % (AUTO) 0.4 % (0.0-2.0); HEMATOCRIT 41.5 % (36-54); HEMOGLOBIN 13.7 g/dL (14.0-18.0); MEAN CORPUSCULAR HEMOGLOBIN 28 pg (27-31); MEAN CORPUSCULAR HGB CONC 33 % (32-36); MEAN CORPUSCULAR VOLUME 85 fL (79.0-98.0); MONOCYTES # (AUTO) 1.2 K/uL (0.0-1.0); MONOCYTES % (AUTO) 8.1 % (1.7-9.3); NEUTROPHILS # (AUTO) 12.4 K/uL (1.8-7.7); NEUTROPHILS % (AUTO) 84.5 % (40.0-70.0); PLATELET COUNT (AUTO) 156 K/uL (130-430); RED BLOOD CELL COUNT(AUTO) 4.88 MIL/uL (4.2-6.2); RED CELL DISTRIBUTION WIDTH 15.5 % (9.0-15.0); WHITE BLOOD COUNT (AUTO) 14.7 K/uL (4.8-10.8)
--- NOTE | 2020-09-13 10:13 | NUR ---
x-ray at bedside
--- NOTE | 2020-09-13 10:15 | NUR ---
Patient transported to radiology via gurney, accompanied by staff
[2020-09-13 10:18] LABS: ANION GAP 12 (5-15); CALCIUM 8.5 mg/dL (8.4-11.0); CHLORIDE 97 mmol/L (98-107); CREATININE 1.93 mg/dL (0.55-1.30); GLUCOSE 176 mg/dL (70-99); POTASSIUM 3.8 mmol/L (3.5-5.1); SODIUM SERUM 133 mmol/L (136-145); UREA NITROGEN, BLOOD 17 mg/dL (8-21)
--- NOTE | 2020-09-13 10:19 | NUR ---
Note freddy in ED - 09/13/20 at 1020 by PEREZ performed in and out catheter for urine collection. sterile technique applied. pt tolerated well.
[2020-09-13 10:20] LABS: PROTHROMBIN TIME 9.8 SECS (9.5-12.5)
[2020-09-13 10:23] LABS: ALANINE AMINOTRANSFERASE 16 U/L (12-78); ALBUMIN 3.1 g/dL (3.4-4.8); ASPARTATE AMINOTRANSFERASE 13 U/L (10-37); TOTAL BILIRUBIN 0.9 mg/dL (0.0-1.0)
[2020-09-13 10:25] LABS: BILIRUBIN,URINE NEGATIVE (NEGATIVE); BLOOD, URINE 2+ (NEGATIVE); CLARITY/URINE CLEAR (CLEAR); COLOR,URINE YELLOW (YELLOW); GLUCOSE,URINE TRACE (NEGATIVE); KETONES,URINE NEGATIVE (NEGATIVE); LEUKOCYTE ESTERASE ,URINE NEGATIVE (NEGATIVE); NITRITE, URINE NEGATIVE (NEGATIVE); PH,URINE 7.5 (5.0-8.0); PROTEIN URINE 2+ (NEGATIVE)
[2020-09-13 10:28] LABS: ACETONE, SERUM NEGATIVE (NEGATIVE)
[2020-09-13 10:42] LABS: WBC,URINE 0-3 /HPF (0-3)
[2020-09-13 10:43] LABS: BACTERIA,URINE None Seen /HPF (None Seen)
[2020-09-13] MEDS ORDERED: SYN50 PO (10:56)
[2020-09-13] MEDS ORDERED: FINA5TAB3 PO (10:56)
[2020-09-13] MEDS ORDERED: NEU300 PO (10:56)
--- NOTE | 2020-09-13 10:56 | NUR ---
Medication reconciliation completed with information provided by ALEJO CHAPA. Any prior medication reconciliation on file was reviewed and corrected.
[2020-09-13] MEDS ORDERED: NACL 0.9% 1,000 ML IV ONE (11:00)
[2020-09-13 11:17] LABS: FREE T4 (FREE THYROXINE) 0.6 ng/dl (0.8-1.5); THYROID STIMULATING HORMONE 3.52 uIu/mL (0.36-3.74)
--- NOTE | 2020-09-13 11:17 | NUR ---
CALLED FOR A BED CHARGE UNAVAILABLE. SPOKE WITH AND WAS TOLD THEY WILL CALL BACK.
--- NOTE | 2020-09-13 11:23 | NUR ---
JOSH MCKINNEY (DAUGHTER) [phone]
[2020-09-13] MEDS: cefTRIAXone 1 GM in D5W 50 ML IV SCH (11:40)
--- NOTE | 2020-09-13 12:13 | NUR ---
Patient will be admitted to care of Dr. Chaudhary. Admitted to MedSurg unit. Will go to room 120B. Belongings list completed. Complete and up to date summary report printed. SBAR report to be given at bedside with opportunity for questions.
--- NOTE | 2020-09-13 12:32 | NUR ---
PATIENT RECEIVED VIA ANGELA A 85 YEAR OLD MAN FROM ER. ALERT AWAKE X 2 KNOWS HIS NAME SAID I AM IN THE HOSPITAL. ORIENTED TO THE ROOM, PLACING CALL LIGHTS WITHIN REACH. TELEPHONE WITHIN REACH. HAS IV ACCESS ON THE LEFT AC #20 WITH NORMAL SALINE AT 100CC/HR INFUSING ON WELL. BED LOW POSITION, ALARMED AND LOCKED.INFORMED TO CALL FOR ANY ASSISTANCE. VITALS SIGNS STABLE. TEMP 99. NO PAIN NOR DISTRESS NOTED.
[2020-09-13 13:23] VITALS: BP_SYST 157
--- NOTE | 2020-09-13 15:00 | NUR ---
ADMISSION ASSESSMENT AND HISTORY DONE. CALLED FAYE THE DAUGHTER FOR OTHER HISTORY TAKEN.
[2020-09-13 18:18] VITALS: BP_SYST 151
[2020-09-13 18:24] VITALS: BP_SYST 156
--- NOTE | 2020-09-13 18:28 | NUR ---
CLOSING NOTES PATIENT AWAKE ALERT X 2-3 BUT SOMETIMES CONFUSED. EATING HIS DINNER. CT OF ABDOMEN/PELVES DONE. HAS IV ACCESS ON THE LEFT AC #20 WITH NORMAL SALINE AT 100CC/HR INFUSING ON WELL. NO S/S OF DISTRESS NOR PAIN NOTED. BED IN LOW POSITION, ALARMED AND LOCKED. ENDORSED TO INCOMING NURSE.
--- NOTE | 2020-09-13 19:30 | NUR ---
OPENING NOTES PATIENT AWAKE ALERT X 2-3 BUT SOMETIMES CONFUSED. HAS IV ACCESS ON THE LEFT AC #20 WITH NORMAL SALINE AT 100CC/HR INFUSING ON WELL. NO S/S OF DISTRESS NOR PAIN NOTED. BED IN LOW POSITION, ALARMED AND LOCKED. WILL CONTINUE TO MONITOR
[2020-09-13] MEDS ORDERED: LACOSAMIDE 100 MG TABLET PO SCH (21:00)
[2020-09-13] MEDS: APIXABAN 2.5 MG TABLET PO SCH (21:24)
--- NOTE | 2020-09-13 21:35 | NUR ---
RN ROUNDS PT IV FOUND TO BE IN URINAL. PT CONFUSED. WILL REORIENT AND PLACE NEW IV CATHETER.
--- NOTE | 2020-09-13 23:50 | NUR ---
SPOKE TO DR JETT REGARDING PT HAS FEVER AND NO TYLENOL ORDERED WELL NO BLOOD CULTURE ORDERED. RCVD NEW ORDERS WILL IMPLEMET.
--- NOTE | 2020-09-14 | NUR ---
RN ROUNDS PT HAS FEVER 101.8 GIVEN TYLENOL PRN WILL REASSESS
[2020-09-14] MEDS: ACETAMINOPHEN 325 MG TABLET PO PRN ×2 (00:35→12:08)
--- NOTE | 2020-09-14 01:00 | NUR ---
RN ROUNDS PT FEVER DOWN TO 99.3
[2020-09-14 01:24] VITALS: BP_SYST 148
[2020-09-14] MEDS: LEVOTHYROXINE SODIUM 0.05 MG TABLET PO SCH (06:11)
--- NOTE | 2020-09-14 06:45 | NUR ---
CLOSING NOTES PATIENT AWAKE ALERT X 2-3 BUT SOMETIMES CONFUSED. HAS IV ACCESS ON THE LFA#22 SALINE LOCKED. NO S/S OF DISTRESS NOR PAIN NOTED. BED IN LOW POSITION, ALARMED AND LOCKED. WILL CONTINUE TO MONITOR
[2020-09-14 08:00] VITALS: BP_SYST 134
--- NOTE | 2020-09-14 08:00 | NUR ---
OPENING NOTE RECEIVED REPORT FROM NIGHT NURSE. PATIENT IS ALERT AND ORIENTED X 3. ON ROOM AIR AND TOLERATING WELL WITH NO SIGNS OF SHORTNESS OF BREATH NOTED. IV IS PATENT, SALINE LOCKED. BED LOCKED AND IN LOWEST POSITION. CALL LIGHT WITHIN REACH. BED ALARM ON. WILL CONTINUE TO MONITOR.
[2020-09-14] MEDS: GABAPENTIN 300 MG CAPSULE PO SCH (08:25)
[2020-09-14] MEDS: amLODIPine BESYLATE 10 MG TABLET PO SCH (08:26)
[2020-09-14] MEDS: AMIODARONE HCL 200 MG TABLET PO SCH (08:26)
[2020-09-14] MEDS: cefTRIAXone 1 GM in D5W 50 ML IV SCH (08:27)
[2020-09-14] MEDS: FINASTERIDE 5 MG TABLET (PROSCAR) PO SCH (08:27)
[2020-09-14] MEDS: APIXABAN 2.5 MG TABLET PO SCH ×2 (08:27→21:11)
[2020-09-14] MEDS: predniSONE 5 MG TABLET PO SCH (08:27)
[2020-09-14] MEDS ORDERED: MELOXICAM 7.5 MG TABLET PO SCH (09:00)
[2020-09-14] MEDS ORDERED: ESTRADIOL 1 MG TABLET (ESTRACE) PO SCH (09:00)
--- NOTE | 2020-09-14 09:57 | NUR ---
CONSULTATION: REASON FOR CONSULT: FEVERS CONSULTING PHYSICIAN: KHUSHBOO ORDERED BY: TOMASA SPOKE WITH [facility] [phone]
[2020-09-14] MEDS: NACL 0.9% 1,000 ML IV SCH (10:19)
[2020-09-14 11:14] LABS: BASOPHILS # (AUTO) 0.1 K/uL (0.0-0.2); BASOPHILS % (AUTO) 0.6 % (0.0-2.0); HEMATOCRIT 38.6 % (36-54); HEMOGLOBIN 12.7 g/dL (14.0-18.0); LYMPHOCYTES # (AUTO) 0.6 K/uL (1.0-5.5); LYMPHOCYTES % (AUTO) 4.6 % (20.5-51.5); MEAN CORPUSCULAR HEMOGLOBIN 28 pg (27-31); MEAN CORPUSCULAR HGB CONC 33 % (32-36); MEAN CORPUSCULAR VOLUME 86 fL (79.0-98.0); MONOCYTES # (AUTO) 0.9 K/uL (0.0-1.0); MONOCYTES % (AUTO) 7.2 % (1.7-9.3); NEUTROPHILS # (AUTO) 11.2 K/uL (1.8-7.7); NEUTROPHILS % (AUTO) 87.6 % (40.0-70.0); PLATELET COUNT (AUTO) 134 K/uL (130-430); RED BLOOD CELL COUNT(AUTO) 4.51 MIL/uL (4.2-6.2); RED CELL DISTRIBUTION WIDTH 15.7 % (9.0-15.0); WHITE BLOOD COUNT (AUTO) 12.8 K/uL (4.8-10.8)
[2020-09-14 11:20] LABS: ANION GAP 10 (5-15); CALCIUM 8.4 mg/dL (8.4-11.0); CHLORIDE 97 mmol/L (98-107); CREATININE 1.99 mg/dL (0.55-1.30); GLUCOSE 212 mg/dL (70-99); POTASSIUM 3.4 mmol/L (3.5-5.1); SODIUM SERUM 130 mmol/L (136-145); UREA NITROGEN, BLOOD 21 mg/dL (8-21)
[2020-09-14 11:25] LABS: ALANINE AMINOTRANSFERASE 19 U/L (12-78); ALBUMIN 2.6 g/dL (3.4-4.8); TOTAL BILIRUBIN 0.4 mg/dL (0.0-1.0)
[2020-09-14 11:28] LABS: ASPARTATE AMINOTRANSFERASE 34 U/L (10-37)
--- NOTE | 2020-09-14 12:13 | NUR ---
FEVER PATIENT HAS FEVER OF 101.7. COOLING MEASURES AND TYLENOL GIVEN PRN PO ORDERED. WILL CONTINUE TO MONITOR.
[2020-09-14 12:17] VITALS: BP_SYST 129
--- NOTE | 2020-09-14 14:54 | NUR ---
TEMPERATURE/ FAMILY TEMPERATURE 98.7. COOLING MEASURES STILL IN PLACE. TWO DAUGHTERS AT BEDSIDE. WILL MONITOR.
[2020-09-14 18:10] VITALS: BP_SYST 128
--- NOTE | 2020-09-14 18:37 | NUR ---
CLOSING NOTE PATIENT IS SLEEPING IN BED. ON ROOM AIR AND TOLERATING WELL WITH NO SIGNS OF SHORTNESS OF BREATH NOTED. IV IS PATENT, INFUSING FLUIDS ORDERED. BED LOCKED AND IN LOWEST POSITION. CALL LIGHT WITHIN REACH. BED ALARM ON. WILL ENDORSE TO NIGHT NURSE.
[2020-09-14 20:30] VITALS: BP_SYST 135
--- NOTE | 2020-09-14 20:30 | NUR ---
Opening notes Pt asleep, easily awakens. Pt states he feels better, VSS, afebrile. Pt Terra CARR[place]O. hearing aid on. IVF infusing at ordered rate L FA 22 clear and patent. Instructed unified communications engineer light use. Pt verbalized understanding. Call light/urinal within reach. Bed low, locked, siderails up x3, alarm on. To monitor.
[2020-09-15] MEDS: NACL 0.9% 1,000 ML IV SCH ×2 (00:27→15:06)
--- NOTE | 2020-09-15 00:27 | NUR ---
Rounds Pt awake, no s/s distress. New IV bag administered. Call light within reach. To monitor.
[2020-09-15 00:28] VITALS: BP_SYST 155
--- NOTE | 2020-09-15 06:20 | NUR ---
Closing notes Pt alert, awake, no s/s distress noted. IVF infusing at ordered rate L FA 22 clear and patent. Instructed internal combustion engine assembler light use. Pt verbalized understanding. Call light/urinal within reach. Bed low, locked, siderails up x3, alarm on. To monitor.
[2020-09-15] MEDS: LEVOTHYROXINE SODIUM 0.05 MG TABLET PO SCH (06:22)
--- NOTE | 2020-09-15 07:38 | NUR ---
OPENING NOTE Patient resting in the bed. No acute distress. Denied of pain. Skin warm and dry to touch. IV intact to LFA, no redness, no swelling, no drainage. On NS at 70ml/hr, infusing well. Discussed safety issue, use call light when needs help, and plan of care, verbally understanding. Safety measure maintained. Call light within reached. Bed locked in low position, side rails up, bed alarm on. Will continue to monitor.
[2020-09-15 07:50] VITALS: BP_SYST 157
[2020-09-15] MEDS: cefTRIAXone 1 GM in D5W 50 ML IV SCH (09:35)
[2020-09-15] MEDS: predniSONE 5 MG TABLET PO SCH (09:35)
[2020-09-15] MEDS: GABAPENTIN 300 MG CAPSULE PO SCH (09:35)
[2020-09-15] MEDS: AMIODARONE HCL 200 MG TABLET PO SCH (09:36)
[2020-09-15] MEDS: FINASTERIDE 5 MG TABLET (PROSCAR) PO SCH (09:36)
[2020-09-15] MEDS: amLODIPine BESYLATE 10 MG TABLET PO SCH (09:36)
[2020-09-15] MEDS: APIXABAN 2.5 MG TABLET PO SCH ×2 (09:37→20:44)
--- NOTE | 2020-09-15 09:53 | NUR ---
AM SCHEDULE MED GIVEN, TOLERATED WELL.
[2020-09-15] MEDS: ACETAMINOPHEN 325 MG TABLET PO PRN (11:06)
--- NOTE | 2020-09-15 11:07 | NUR ---
TEMP 101.6 Patient has temp 101.6, Tylenol 650mg Po given as ordered. Sixto Gonzalez seen and examined patient and aware of fever. Cooling measure maintained. Call light within reached. Bed locked in low position, side rails up, bed alarm on. Continue to monitor.
--- NOTE | 2020-09-15 11:26 | NUR ---
RECEIVED THE CALL FROM GOSIA GOODMAN TO UPDATE PATIENT CONDITION.
[2020-09-15 11:30] LABS: BASOPHILS # (AUTO) 0.1 K/uL (0.0-0.2); BASOPHILS % (AUTO) 0.5 % (0.0-2.0); HEMATOCRIT 37.6 % (36-54); HEMOGLOBIN 12.6 g/dL (14.0-18.0); LYMPHOCYTES # (AUTO) 0.5 K/uL (1.0-5.5); LYMPHOCYTES % (AUTO) 4.8 % (20.5-51.5); MEAN CORPUSCULAR HEMOGLOBIN 28 pg (27-31); MEAN CORPUSCULAR HGB CONC 33 % (32-36); MEAN CORPUSCULAR VOLUME 85 fL (79.0-98.0); MONOCYTES % (AUTO) 9.7 % (1.7-9.3); PLATELET COUNT (AUTO) 138 K/uL (130-430); RED BLOOD CELL COUNT(AUTO) 4.44 MIL/uL (4.2-6.2); RED CELL DISTRIBUTION WIDTH 16.2 % (9.0-15.0); WHITE BLOOD COUNT (AUTO) 10.6 K/uL (4.8-10.8)
[2020-09-15 11:39] LABS: ANION GAP 14 (5-15); CALCIUM 7.9 mg/dL (8.4-11.0); CHLORIDE 95 mmol/L (98-107); CREATININE 2.06 mg/dL (0.55-1.30); GLUCOSE 235 mg/dL (70-99); POTASSIUM 3.1 mmol/L (3.5-5.1); SODIUM SERUM 128 mmol/L (136-145); UREA NITROGEN, BLOOD 22 mg/dL (8-21)
--- NOTE | 2020-09-15 12:06 | NUR ---
RECHECKED TEMP 99.2 Patient resting in the bed. No acute distress. Safety measure maintained. Call light within reached. Continue to monitor.
[2020-09-15] MEDS: PIPERACILLIN/TAZO 2.25G/DEX-IS 50 ML IV SCH ×2 (13:07→18:40)
[2020-09-15 13:48] VITALS: BP_SYST 115
--- NOTE | 2020-09-15 14:10 | NUR ---
FAMILY VISITED AT BEDSIDE.
[2020-09-15 15:50] VITALS: BP_SYST 119
--- NOTE | 2020-09-15 16:12 | NUR ---
ROUND Patient resting in the bed with eye closed. IV intact, IVF infusing well. Safety measure maintained. Call light within reached. Continue to monitor.
--- NOTE | 2020-09-15 18:52 | NUR ---
CLOSING NOTE Patient resting in the bed. No acute distress. Denied of pain during shift. Skin warm and dry to touch. IV intact to LFA, no redness, no swelling, no drainage. On NS at 70ml/hr, infusing well. All needs met. Safety measure maintained. Call light within reached. Bed locked in low position, side rails up, bed alarm on. Will endorse to night nurse.
[2020-09-15 20:00] VITALS: BP_SYST 131
--- NOTE | 2020-09-15 22:00 | NUR ---
ROUNDING NOTES Patient resting in bed - no s/s pain or distress noted. Respirations even and unlabored - head of bed elevated. IV site patent - no s/s redness, infection, or infiltration. Bed locked and in lowest position. Call light within reach - bed alarm on.
[2020-09-16] MEDS: PIPERACILLIN/TAZO 2.25G/DEX-IS 50 ML IV SCH ×4 (00:19→17:31)
[2020-09-16] MEDS: ACETAMINOPHEN 325 MG TABLET PO PRN ×2 (00:19→14:42)
[2020-09-16 00:36] VITALS: BP_SYST 144
[2020-09-16] MEDS: LEVOTHYROXINE SODIUM 0.05 MG TABLET PO SCH (06:08)
[2020-09-16] MEDS: NACL 0.9% 1,000 ML IV SCH ×2 (06:10→20:38)
[2020-09-16 06:16] LABS: BASOPHILS % (AUTO) 0.4 % (0.0-2.0); HEMATOCRIT 38.1 % (36-54); HEMOGLOBIN 12.5 g/dL (14.0-18.0); LYMPHOCYTES # (AUTO) 0.9 K/uL (1.0-5.5); LYMPHOCYTES % (AUTO) 7.1 % (20.5-51.5); MEAN CORPUSCULAR HEMOGLOBIN 28 pg (27-31); MEAN CORPUSCULAR HGB CONC 33 % (32-36); MEAN CORPUSCULAR VOLUME 85 fL (79.0-98.0); MONOCYTES # (AUTO) 0.9 K/uL (0.0-1.0); MONOCYTES % (AUTO) 7.9 % (1.7-9.3); NEUTROPHILS # (AUTO) 10.2 K/uL (1.8-7.7); NEUTROPHILS % (AUTO) 84.6 % (40.0-70.0); PLATELET COUNT (AUTO) 139 K/uL (130-430); RED BLOOD CELL COUNT(AUTO) 4.48 MIL/uL (4.2-6.2); WHITE BLOOD COUNT (AUTO) 12.1 K/uL (4.8-10.8)
[2020-09-16 06:50] LABS: ANION GAP 9 (5-15); CALCIUM 7.7 mg/dL (8.4-11.0); CHLORIDE 99 mmol/L (98-107); CREATININE 1.99 mg/dL (0.55-1.30); GLUCOSE 172 mg/dL (70-99); SODIUM SERUM 133 mmol/L (136-145); UREA NITROGEN, BLOOD 21 mg/dL (8-21)
[2020-09-16 06:51] LABS: C-REACTIVE PROTEIN QUANT < 0.2 mg/dL (0-0.5)
--- NOTE | 2020-09-16 07:20 | NUR ---
Opening note Received SBAR from night RN, Patient resting in bed - no s/s pain or distress noted. Respirations even and unlabored - head of bed elevated. IV site patent - no s/s redness, infection, or infiltration. Bed locked and in lowest position. Call light within reach - bed alarm on.
[2020-09-16 07:43] LABS: ERYTHROCYTE SEDIMENTATION RATE 77 MM/HR (0-15)
--- NOTE | 2020-09-16 07:48 | NUR ---
paged paged Dr. Agrawal regarding potassium 3.0
[2020-09-16 08:00] VITALS: BP_SYST 140
--- NOTE | 2020-09-16 08:39 | NUR ---
SPOKE WITH DR FORREST, INFORMED OF PATIENTS POTASSIUM 3.0, NEW ORDERS RECEIVED
--- NOTE | 2020-09-16 08:40 | NUR ---
HIGH ALERT NOTE: Called Dr. FORREST back at [phone] identified within the medical roster to verify physician authenticity.
[2020-09-16] MEDS: GABAPENTIN 300 MG CAPSULE PO SCH (08:44)
[2020-09-16] MEDS: AMIODARONE HCL 200 MG TABLET PO SCH (08:44)
[2020-09-16] MEDS: predniSONE 5 MG TABLET PO SCH (08:44)
[2020-09-16] MEDS: FINASTERIDE 5 MG TABLET (PROSCAR) PO SCH (08:44)
[2020-09-16] MEDS: amLODIPine BESYLATE 10 MG TABLET PO SCH (08:45)
[2020-09-16] MEDS: APIXABAN 2.5 MG TABLET PO SCH ×2 (08:47→20:30)
[2020-09-16] MEDS ORDERED: POTASSIUM CHLORIDE 40 MEQ in NS 250 ML IV ONE (10:00)
--- NOTE | 2020-09-16 10:30 | NUR ---
nurse note patient incontinent of bladder, provided sky care, changed linens and gown, repositioned patient, placed patient on O2 2L by nasal canula. patient has audible wheezes, and appears to be short of breath
--- NOTE | 2020-09-16 10:55 | NUR ---
paged Paged Dr Agrawal regarding patients respiratory status
--- NOTE | 2020-09-16 11:00 | NUR ---
MD ROUNDS DR FORREST BEDSIDE EXAMINING PATIENT, INFORMED DR REGARDING RESPIRATORY STATUS
--- NOTE | 2020-09-16 11:32 | NUR ---
CONSULT PULMONOLOGY RESP FAILURE DR GALLEGOS, EDIS GALLEGOS WAS PAGED
[2020-09-16 12:00] VITALS: BP_SYST 142
[2020-09-16 12:20] VITALS: BP_SYST 140
[2020-09-16] MEDS: IPRATROPIUM/ALBUTEROL SULFATE 3 ML AMPUL.NEB (DUONEB) INH PRN (12:20)
--- NOTE | 2020-09-16 14:39 | NUR ---
nurse note patient has fever, administered medications, ice packs placed in axcilla' s, and groin. Will continue to monitor
--- NOTE | 2020-09-16 15:42 | NUR ---
NURSE NOTE REASSESSED PATIENT FEVER, 98.9, PATIENT DENIES ANY PAIN OR DISCOMFORT. WILL CONTINUE TO MONITOR
--- NOTE | 2020-09-16 18:03 | NUR ---
PAGED PAGEToo FORREST, CHANGE IN ALOC
--- NOTE | 2020-09-16 18:14 | NUR ---
NURSE NOTE INFORMED DR FORREST OF CHANGE IN ALOC NEW ORDERS RECEIVED
[2020-09-16 18:16] VITALS: BP_SYST 138
--- NOTE | 2020-09-16 19:20 | NUR ---
CLOSING NOTE PROVIDED SBAR FROM NIGHT RN, PATIENT IN BED, RESPIRATIONS SHALLOW, 2l O2 NASAL CANULA, BED IN LOW AND LOCKED POSITION CALL LIGHT WITHIN REACH, BED ALARM ON. ENDORSED TO NIGHT RN, TO CALL DR STEWARD WITH RESULTS OF ABG AND AMMONIA. PER DR FORREST. ENDORSED CARE TO NIGHTRN
[2020-09-16 20:00] VITALS: BP_SYST 126
--- NOTE | 2020-09-16 20:04 | NUR ---
CALLED DR. JETT REGARDING AMMONIA AND ABG LABS TURCIOS Dr. Jett at this time regarding Ammonia and ABG levels due to ALOC episode during previous shift. No new orders to be input by the RN at this time.
--- NOTE | 2020-09-16 22:00 | NUR ---
ROUNDING NOTES Patient resting in bed - no s/s pain or distress noted. Respirations even and unlabored - NC 2L head of bed elevated. Bed locked and in lowest position. Call light within reach - bed alarm on.
--- NOTE | 2020-09-17 | NUR ---
ROUNDING NOTES Patient resting in bed - no s/s pain or distress noted. Respirations even and unlabored - NC 2L head of bed elevated. Bed locked and in lowest position. Call light within reach - bed alarm on. PATIENT KEPT NPO AT THIS TIME FOR HIDA SCAN
[2020-09-17 00:13] VITALS: BP_SYST 130
[2020-09-17] MEDS: PIPERACILLIN/TAZO 2.25G/DEX-IS 50 ML IV SCH ×4 (00:13→17:32)
--- NOTE | 2020-09-17 05:56 | NUR ---
PATIENT FAMILY NOTIFIED OF SCHEDULED HIDA SCAN Patient and patient family informed of schedule HIDA scan. Patient and patient family unaware and state they were not educated about the procedure. Will endorse to morning shift nurse.
[2020-09-17] MEDS: LEVOTHYROXINE SODIUM 0.05 MG TABLET PO SCH (06:21)
[2020-09-17 06:28] LABS: BASOPHILS # (AUTO) 0.1 K/uL (0.0-0.2); BASOPHILS % (AUTO) 0.4 % (0.0-2.0); EOSINOPHILS % (AUTO) 0.1 % (0.0-4.0); HEMATOCRIT 35.7 % (36-54); HEMOGLOBIN 11.7 g/dL (14.0-18.0); LYMPHOCYTES # (AUTO) 0.9 K/uL (1.0-5.5); LYMPHOCYTES % (AUTO) 6.8 % (20.5-51.5); MEAN CORPUSCULAR HEMOGLOBIN 28 pg (27-31); MEAN CORPUSCULAR HGB CONC 33 % (32-36); MEAN CORPUSCULAR VOLUME 85 fL (79.0-98.0); MONOCYTES # (AUTO) 0.7 K/uL (0.0-1.0); MONOCYTES % (AUTO) 5.5 % (1.7-9.3); NEUTROPHILS % (AUTO) 87.2 % (40.0-70.0); PLATELET COUNT (AUTO) 146 K/uL (130-430); RED BLOOD CELL COUNT(AUTO) 4.22 MIL/uL (4.2-6.2); RED CELL DISTRIBUTION WIDTH 16.4 % (9.0-15.0); WHITE BLOOD COUNT (AUTO) 12.6 K/uL (4.8-10.8)
[2020-09-17 07:24] LABS: ANION GAP 10 (5-15); CALCIUM 7.7 mg/dL (8.4-11.0); CHLORIDE 100 mmol/L (98-107); CREATININE 2.02 mg/dL (0.55-1.30); GLUCOSE 168 mg/dL (70-99); POTASSIUM 3.5 mmol/L (3.5-5.1); SODIUM SERUM 133 mmol/L (136-145); UREA NITROGEN, BLOOD 20 mg/dL (8-21)
[2020-09-17 07:25] LABS: ALANINE AMINOTRANSFERASE 59 U/L (12-78); ASPARTATE AMINOTRANSFERASE 55 U/L (10-37); TOTAL BILIRUBIN 0.5 mg/dL (0.0-1.0)
[2020-09-17 08:08] VITALS: BP_SYST 109
[2020-09-17] MEDS: predniSONE 5 MG TABLET PO SCH (08:11)
[2020-09-17] MEDS: GABAPENTIN 300 MG CAPSULE PO SCH (08:13)
[2020-09-17] MEDS: FINASTERIDE 5 MG TABLET (PROSCAR) PO SCH (08:13)
[2020-09-17] MEDS: amLODIPine BESYLATE 10 MG TABLET PO SCH (08:13)
[2020-09-17] MEDS: AMIODARONE HCL 200 MG TABLET PO SCH (08:14)
[2020-09-17] MEDS: APIXABAN 2.5 MG TABLET PO SCH ×2 (08:15→22:08)
--- NOTE | 2020-09-17 08:18 | NUR ---
Opening note Patient is resting in bed a&O x3 heard of hearing, no complaint of pain or discomfort. No signs or symptoms or respiratory distress. IV is infusing no signs or symptoms of infiltration. Difficult to communicate with patient because he is hard of hearing. educated patient on plan of care , patient confused, will reenforce teaching. Bed is in lowest position call light within reach fall and aspiration precautions are in place. Will continue to monitor.
[2020-09-17 08:58] LABS: C-REACTIVE PROTEIN QUANT 37.6 mg/dL (0-0.5)
[2020-09-17] MEDS: NACL 0.9% 1,000 ML IV SCH ×2 (09:30→11:22)
--- NOTE | 2020-09-17 09:56 | NUR ---
CONSULTATION PAGED REASON FOR CONSULTATION:ABDOMINAL PAIN WAS CONSULT CALLED?Y PERSON WHO WAS NOTIFIED:RIVERA CONSULTING PHYSICIAN:BHAVIK ALCANTAR LOOM CLEANER SPECIALTY:SURGEON LOOM CLEANER PHONE NUMBER:[phone] REQUESTING PHYSICIAN:SHRAVAN SO
[2020-09-17 11:21] LABS: ERYTHROCYTE SEDIMENTATION RATE 82 MM/HR (0-15)
[2020-09-17 12:15] VITALS: BP_SYST 121
[2020-09-17] MEDS: ACETAMINOPHEN 325 MG TABLET PO PRN (15:04)
--- NOTE | 2020-09-17 15:40 | NUR ---
IV RE-INSERTION: Patient pulled IV out. Restarted on Right forearm . Successful after 1 attempts. Resumed current IVF. Will observe for any signs of infiltration.
[2020-09-17 16:15] VITALS: BP_SYST 120
--- NOTE | 2020-09-17 17:45 | NUR ---
Rn note Spoke with Dr. Oates, updated on patients current stats. ALOC, elevated blood sugar and elevated temperature. No new orders at this time.
--- NOTE | 2020-09-17 18:56 | NUR ---
Closing note Patient is resting in bed a&O x3 hard of hearing, no complaint of pain or discomfort. No signs or symptoms or respiratory distress. IV is infusing no signs or symptoms of infiltration. Difficult to communicate with patient because he is hard of hearing. Bed is in lowest position call light within reach fall and aspiration precautions are in place. Will endorse report to shift nurse manager
[2020-09-17 20:33] VITALS: BP_SYST 101
[2020-09-18 00:20] VITALS: BP_SYST 122
[2020-09-18] MEDS: PIPERACILLIN/TAZO 2.25G/DEX-IS 50 ML IV SCH ×4 (00:25→17:19)
--- NOTE | 2020-09-18 01:32 | NUR ---
SPOKE WITH DR. TOMASA MD NOTIFIED THAT PATIENT'S BLOOD SUGAR AT 2300 IS 240 AND THAT PATIENT HAS DM AND USUALLY TAKES GLIPIZIDE AT HOME, SAID "DON'T WORRY ABOUT IT."
[2020-09-18] MEDS: INSULIN REGULAR, HUMAN 100 UNITS/ML, 10 ML VIAL (humuLIN R) SUBCUT PRN ×4 (06:05→21:38)
[2020-09-18] MEDS: NACL 0.9% 1,000 ML IV SCH (06:07)
[2020-09-18] MEDS: LEVOTHYROXINE SODIUM 0.05 MG TABLET PO SCH (06:07)
[2020-09-18] MEDS ORDERED: GLUCOSE (DEXTROSE) ORAL GEL -Adults PO PRN (07:00)
[2020-09-18] MEDS ORDERED: D5W 1,000 ML IV PRN (07:00)
[2020-09-18] MEDS ORDERED: DEXTROSE 50%-WATER 50 ML DISP.SYRIN IVP PRN (07:00)
--- NOTE | 2020-09-18 07:40 | NUR ---
opening notes pt awake and alert. iv line intact and patent, no signs of infiltration noted. no acute distress noted. all needs met. call light in reach. fall and aspiration precautions in place.
[2020-09-18 08:00] VITALS: BP_SYST 140
[2020-09-18] MEDS: APIXABAN 2.5 MG TABLET PO SCH ×2 (08:57→21:39)
[2020-09-18] MEDS: predniSONE 5 MG TABLET PO SCH (08:57)
[2020-09-18] MEDS: AMIODARONE HCL 200 MG TABLET PO SCH (08:57)
[2020-09-18] MEDS: amLODIPine BESYLATE 10 MG TABLET PO SCH (08:57)
[2020-09-18] MEDS: FINASTERIDE 5 MG TABLET (PROSCAR) PO SCH (08:57)
[2020-09-18] MEDS: GABAPENTIN 300 MG CAPSULE PO SCH (08:57)
--- NOTE | 2020-09-18 09:07 | NUR ---
routine meds administered as ordered per md, education given, tolerated well.
--- NOTE | 2020-09-18 11:39 | NUR ---
Dietitian Recommendations *[facility] *Consider adding ONS if PO intake is less than 75% of meals by f/u. Please see Nutritional Assessment for details. SHALINI, SHERRON
--- NOTE | 2020-09-18 12:09 | NUR ---
accucheck done, insulin coverage administered per sliding scale, education given, tolerated well. iv abx administered as ordered per md, education given, tolerated well.
[2020-09-18 12:16] VITALS: BP_SYST 117
--- NOTE | 2020-09-18 13:32 | NUR ---
P.T. NOTES P.T. EVAL COMPLETED; REFER TO EVAL FOR DETAILS.
--- NOTE | 2020-09-18 14:05 | NUR ---
CONSULTATION PAGED/CALLED Reason for Consultation: RENAL FAILURE Person Who was Notified: BENI Consulting Physician: JOE Free Lance Model Specialty: NEPHRO Ordering Physician: TOMASA
[2020-09-18 17:17] VITALS: BP_SYST 112
--- NOTE | 2020-09-18 19:05 | NUR ---
closing notes pt awake and alert. iv line intact and patent, no signs of infiltration noted, fluids running as ordered. no acute distress noted. all needs met. call light in reach. fall and aspiration precautions in place. will endorse to noc nurse.
--- NOTE | 2020-09-18 22:05 | NUR ---
BSG Blood Sugar Glucose 201 mg dl four UNITS of Regular insulin per sliding scale continue to monitor .
[2020-09-19] VITALS: BP_SYST 135
--- NOTE | 2020-09-19 | NUR ---
ASSIST Patient with use of BED GONSALVES kept clean & dry as needed patient does use bedside urinal as needed / .
[2020-09-19] MEDS: PIPERACILLIN/TAZO 2.25G/DEX-IS 50 ML IV SCH ×2 (01:03→06:28)
[2020-09-19] MEDS: NACL 0.9% 1,000 ML IV SCH ×2 (01:04→21:49)
--- NOTE | 2020-09-19 02:17 | NUR ---
Hourly Rounding Patient Resting HOB elevated call vasquez given to patient FALL measures implemented frequent visual monitor for safety .
--- NOTE | 2020-09-19 02:54 | NUR ---
Patient Resting this hour is verbally Responsive Respirations Remain Regular also unlabored .
--- NOTE | 2020-09-19 03:31 | NUR ---
Patient incontinent of urine kept clean also dry as needed , bed henry offered & urinal assist as needed .
--- NOTE | 2020-09-19 04:56 | NUR ---
Large stool noted Bed henry given , kept clean & dry as needed .
[2020-09-19] MEDS: LEVOTHYROXINE SODIUM 0.05 MG TABLET PO SCH (06:28)
[2020-09-19] MEDS: INSULIN REGULAR, HUMAN 100 UNITS/ML, 10 ML VIAL (humuLIN R) SUBCUT PRN ×4 (06:46→21:53)
[2020-09-19 08:00] VITALS: BP_SYST 129
--- NOTE | 2020-09-19 08:10 | NUR ---
ASSUMPTION OF CARE: RECEIVED PT AWAKE/ ORIENTX2-3, HYDABURG, HAS HEARING AID IN RIGHT EAR, DX: ABNORMAL LABS, R/T INCREASED WBC, AFEBRILE, VSS, NO C/O PAIN OR DISCOMFORT, BREATH SOUNDS ARE CLEAR, BREATHING UNLABORED, IV SITE INTACT, PATENT, NO REDNESS OR SWELLING, REORIENTED TO UNIT, CALL LIGHT PLACED WITHIN REACH, WILL CONT' TO MONITOR AND ASSESS.
[2020-09-19] MEDS: amLODIPine BESYLATE 10 MG TABLET PO SCH (08:15)
[2020-09-19] MEDS: predniSONE 5 MG TABLET PO SCH (08:15)
[2020-09-19] MEDS: APIXABAN 2.5 MG TABLET PO SCH ×2 (08:16→21:49)
[2020-09-19] MEDS: AMIODARONE HCL 200 MG TABLET PO SCH (08:17)
[2020-09-19] MEDS: FINASTERIDE 5 MG TABLET (PROSCAR) PO SCH (08:17)
[2020-09-19] MEDS: GABAPENTIN 300 MG CAPSULE PO SCH (08:19)
--- NOTE | 2020-09-19 09:20 | NUR ---
STENOTYPIST: MORNING MEDS GIVEN, PER ORDERED BY Carlie, TOLERATED WELL, WILL CONT' TO MONITOR AND ASSESS.
[2020-09-19 10:12] LABS: BASOPHILS % (AUTO) 0.2 % (0.0-2.0); EOSINOPHILS # (AUTO) 0.1 K/uL (0.0-0.4); EOSINOPHILS % (AUTO) 0.8 % (0.0-4.0); HEMATOCRIT 34.2 % (36-54); HEMOGLOBIN 11.4 g/dL (14.0-18.0); LYMPHOCYTES # (AUTO) 0.6 K/uL (1.0-5.5); LYMPHOCYTES % (AUTO) 5.7 % (20.5-51.5); MEAN CORPUSCULAR HEMOGLOBIN 28 pg (27-31); MEAN CORPUSCULAR HGB CONC 33 % (32-36); MEAN CORPUSCULAR VOLUME 84 fL (79.0-98.0); MONOCYTES # (AUTO) 0.6 K/uL (0.0-1.0); MONOCYTES % (AUTO) 5.8 % (1.7-9.3); NEUTROPHILS # (AUTO) 9.5 K/uL (1.8-7.7); NEUTROPHILS % (AUTO) 87.5 % (40.0-70.0); PLATELET COUNT (AUTO) 188 K/uL (130-430); RED BLOOD CELL COUNT(AUTO) 4.08 MIL/uL (4.2-6.2); RED CELL DISTRIBUTION WIDTH 16.7 % (9.0-15.0); WHITE BLOOD COUNT (AUTO) 10.8 K/uL (4.8-10.8)
[2020-09-19 10:31] LABS: ANION GAP 16 (5-15); CALCIUM 8.1 mg/dL (8.4-11.0); CHLORIDE 105 mmol/L (98-107); CREATININE 1.83 mg/dL (0.55-1.30); GLUCOSE 224 mg/dL (70-99); SODIUM SERUM 137 mmol/L (136-145); UREA NITROGEN, BLOOD 26 mg/dL (8-21)
[2020-09-19 10:36] LABS: ALANINE AMINOTRANSFERASE 226 U/L (12-78); ALBUMIN 1.6 g/dL (3.4-4.8); ASPARTATE AMINOTRANSFERASE 332 U/L (10-37); TOTAL BILIRUBIN 0.7 mg/dL (0.0-1.0)
--- NOTE | 2020-09-19 11:30 | NUR ---
GLUCOSE MONITORING: BLOOD SUGAR [id number]=202, COVERED WITH 4UNITS REGULAR INSULIN SQ, TOLERATED WELL, WILL CONT' TO MONITOR AND ASSESS.
[2020-09-19] MEDS: cefTRIAXone 1 GM in D5W 50 ML IV SCH (11:31)
[2020-09-19 12:21] VITALS: BP_SYST 133
[2020-09-19 12:33] VITALS: BP_SYST 129
[2020-09-19 16:38] VITALS: BP_SYST 136
--- NOTE | 2020-09-19 17:30 | NUR ---
GLUCOSE MONITORING: BLOOD SUGAR [id number], COVERED WITH 4UNITS REGULAR INSULIN SQ, TOLERATED WELL, WILL CONT' TO MONITOR AND ASSESS.
[2020-09-19 20:00] VITALS: BP_SYST 122
--- NOTE | 2020-09-19 23:08 | NUR ---
PT'S POTASSIUM DRAWN THIS MORNING IS 3.0 - PAGED DR. JETT TO REPORT AND OBTAIN ORDERS
[2020-09-20] VITALS: BP_SYST 137
[2020-09-20] MEDS: LEVOTHYROXINE SODIUM 0.05 MG TABLET PO SCH (06:38)
[2020-09-20] MEDS: INSULIN REGULAR, HUMAN 100 UNITS/ML, 10 ML VIAL (humuLIN R) SUBCUT PRN ×3 (06:46→17:22)
--- NOTE | 2020-09-20 07:10 | NUR ---
NURSE NOTE PATIENT IN BED, RESPIRATIONS EVEN, NON LABORED,2L O2 NASAL CANULA, BED IN LOW AND LOCKED POSITION CALL LIGHT WITHIN REACH, BED ALARM ON IVF'S RUNNING ORDERED.
[2020-09-20 08:00] VITALS: BP_SYST 138
--- NOTE | 2020-09-20 08:00 | NUR ---
NURSE NOTE PATIENT INCONTINENT OF BLADDER, PROVIDED JOYCELYN CARE, NOTICED 2 WOUNDS ON PATIENT , 1 IS ON RIGHT BUTTOCK, 1 IS ON INTERGLUTEAL CLEFT. APPLIED HYDROGEL, AND FOAM DRESSING, EDUCATED PATIENT REGARDING THE NECESSITY TO REPOSITION FREQUENTLY, PATIENT UNABLE TO UNDERSTAND DUE TO AOX2
[2020-09-20] MEDS: predniSONE 5 MG TABLET PO SCH (08:41)
[2020-09-20] MEDS: APIXABAN 2.5 MG TABLET PO SCH (08:41)
[2020-09-20] MEDS: FINASTERIDE 5 MG TABLET (PROSCAR) PO SCH (08:41)
[2020-09-20] MEDS: GABAPENTIN 300 MG CAPSULE PO SCH (08:42)
[2020-09-20] MEDS: amLODIPine BESYLATE 10 MG TABLET PO SCH (08:42)
[2020-09-20] MEDS: AMIODARONE HCL 200 MG TABLET PO SCH (08:43)
[2020-09-20] MEDS: IPRATROPIUM/ALBUTEROL SULFATE 3 ML AMPUL.NEB (DUONEB) INH PRN ×2 (09:27→19:37)
[2020-09-20] MEDS ORDERED: LEVO500T89 PO (10:01)
--- NOTE | 2020-09-20 10:30 | NUR ---
WOUND CARE PROVIDED PATIENT WITH WOUND CARE, PICTURES TAKEN, REPOSITIONED PATIENT WITH PILLOW SUPPORT
[2020-09-20] MEDS: cefTRIAXone 1 GM in D5W 50 ML IV SCH (11:31)
[2020-09-20] MEDS: NACL 0.9% 1,000 ML IV SCH (11:40)
[2020-09-20] MEDS ORDERED: ALBU2.5V7 INH (11:42)
[2020-09-20 12:51] VITALS: BP_SYST 135
--- NOTE | 2020-09-20 13:27 | NUR ---
MD ROUNDS DR LECHUGA BEDSIDE EXAMINING PATIENT, I SPOKE WITH PATIENTS DAUGHTER, ADAM, INFORMED HER THAT PER DR LECHUGA PNM IS RESOLVED, UTI CONTINUING TO TREAT, ANSWERED ALL QLUESTIONS DAUGHTER VERBALIZED UNDERSTANDING,
--- NOTE | 2020-09-20 13:46 | NUR ---
WOUND EVALUATION: Wound Consult received from Dr. Chaudhary. Thank you, Dr. Chaudhary, for the consult. Patient received in a [place] Bed with an IsoFlex ANA mattress with low air loss therapy initiated, awake, alert, confused. Patient is unable to turn in bed independently. Evan Score is a 16. Past Medical History: Diabetes Mellitus, Hypertension, heart disease. Recent Labs: WBC 10.8, RBC 4.08, hemoglobin 11.4, hematocrit 34.2, ESR 82, potassium 3.0, BUN 26, creatinine 1.83, glucose 224, POC glucose 220, albumin 1.6. Microbiology: Blood culture results x2 in progress. Intrinsic factors that delay wound healing: Severe Hypoalbuminemia, Hyperglycemia, Diabetes mellitus. Extrinsic factors that delay wound healing: Decreased mobility. Wound Assessment: 1. 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 Site has 100% pink tissue. No odor, no drainage. Periwound intact. Site measures 2.5 cm x 0.3 cm. 2. Right Buttock: Skin tear. Site has 100% pink tissue. No odor, no drainage. Periwound intact. Site measures 0.8 cm x 0.9 cm. Recommend: Cleanse sites with mild soap and water. Gently pat dry. Apply Calmoseptine cream to involved area. Cover site with Sacral foam dressing, pushing center of dressing into intergluteal cleft with fingers. Perform site care daily, and as needed for dressing soiling or dislodgement. Also recommend: Reposition patient side to side only every 2 hours with pillow support and off-load pressure areas with pillows for pressure re-distribution. Offload, elevate and float bilateral heels with pillows. Perform skin care and monitor skin integrity Q shift. Use Calmoseptine cream on buttocks and other moisture susceptible areas QID and as needed for soiling. Maintain patient on a low air-loss mattress.
--- NOTE | 2020-09-20 13:46 | NUR ---
WOUND CARE PATIENT INCONTINENT OF BOWEL AND BLADDER, PROVIDED JOYCELYN CARE CHANGED LINENS AND REPOSITIONED PATIENT, PROVIDED WOUND CARE WITH EDUARD SMILEY,
--- NOTE | 2020-09-20 14:11 | NUR ---
patient will dc to SNF today [facility] [address] [place] [address] medic 1 ambulance please call to set up auth# [id number] [phone] Sommer Kc RN Cm spoke with family , family requesting SNF
[2020-09-20 15:25] VITALS: BP_SYST 136
--- NOTE | 2020-09-20 16:48 | NUR ---
report spoke with Kell CHAPA at [facility] , provided report
--- NOTE | 2020-09-20 16:53 | NUR ---
transportation arranged transportation to [facility]. Medic 1 Spoke with Will they will be here at 2000
--- NOTE | 2020-09-20 16:58 | NUR ---
consent received consent to transfer to [facility] by daughter Courtney Coombs, second RN verified and signed consent
[2020-09-20 18:21] VITALS: BP_SYST 95
--- NOTE | 2020-09-20 19:14 | NUR ---
CLOSING NOTE PROVIDED SBAR TO NIGHT RN, PATIENT IN BED, RESPIRATIONS EVEN, NON LABORED, BED IN LOW AND LOCKED POSITION CALL LIGHT WITHIN REACH, BED ALARM ON, IVF'S RUNNING ORDERED. ENDORSED TRANSFER TO NIGHT RN,
--- NOTE | 2020-09-20 19:40 | NUR ---
ROUNDS PATIENT RESTING COMFORTABLY IN BED, NOT IN DISTRESS, VITALS STABLE. PATIENT READY FOR DISCHARGE AND TRANSFER TO [facility] ORDERED. DISCHARGE PACKET AND REPORT ALREADY DONE BY A.M. SHIFT NURSE. ALL NEEDS ATTENDED TO. CALL LIGHT PLACED WITHIN REACH.
--- NOTE | 2020-09-20 20:35 | NUR ---
PT TRANSFERRED Report given to KEYON RN by Primitivo nurse. Transfer packet with Transfer Orders and Medication Reconciliation form given to EMT with report. Exitcare provided. [facility] ID band removed, replaced with ID band with pt's name and . IV catheter removed, intact and dressing applied, no active bleeding. All belongings sent with patient. Patient left floor via gurney escorted by EMT in no distress.
== END 2020-09-20 20:35 | DRG 871 ==
LOC: SED 09:33 → SMU 10:59
PROVIDERS: ADMIT Internal Medicine Hospice and Palliative Medicine; ATTEND Internal Medicine Hospice and Palliative Medicine
DX: A41.9 Sepsis, unspecified organism (principal); J18.9 Pneumonia, unspecified organism; J96.21 Acute and chronic respiratory failure with hypoxia; G93.41 Metabolic encephalopathy; N17.0 Acute kidney failure with tubular necrosis; E43 Unspecified severe protein-calorie malnutrition; N39.0 Urinary tract infection, site not specified; E87.2 Acidosis; E87.1 Hypo-osmolality and hyponatremia; I13.0 Hypertensive heart and chronic kidney disease with heart failure and stage 1 through stage 4 chronic kidney disease, or unspecified chronic kidney disease; J44.0 Chronic obstructive pulmonary disease with (acute) lower respiratory infection; G47.33 Obstructive sleep apnea (adult) (pediatric); E66.01 Morbid (severe) obesity due to excess calories; E11.65 Type 2 diabetes mellitus with hyperglycemia; E87.6 Hypokalemia; E83.52 Hypercalcemia; R53.81 Other malaise; I48.91 Unspecified atrial fibrillation; Z20.822 Contact with and (suspected) exposure to COVID-19; D64.9 Anemia, unspecified; I50.9 Heart failure, unspecified; N18.9 Chronic kidney disease, unspecified; E11.22 Type 2 diabetes mellitus with diabetic chronic kidney disease; I70.0 Atherosclerosis of aorta; K57.90 Diverticulosis of intestine, part unspecified, without perforation or abscess without bleeding; K82.8 Other specified diseases of gallbladder; N40.0 Benign prostatic hyperplasia without lower urinary tract symptoms; Z79.899 Other long term (current) drug therapy; Z87.440 Personal history of urinary (tract) infections; Z79.52 Long term (current) use of systemic steroids; Z68.31 Body mass index [BMI] 31.0-31.9, adult
CPT/HCPCS: 36415; 36600; 70450-TC; 71045; 76376; 76700-TC; 76770; 78226; 80048; 80053; 81000; 82009; 82140; 82550; 82803-TC; 82962; 83605; 84439; 84443; 84484; 85025; 85610-TC; 85651-TC; 85730-TC; 86140; 87040-TC; 93005; 94640; 94760; 96365; 97110-GP; 97112-GP; 97116-GP; 97163-GP; 97530-GP; 99285; A9537; J0696; J1815; J2543; J3480; J7050; J7060; J7512

== ENCOUNTER 2023-10-21 07:39 | Emergency (ER) | payer OTHER ==
[~2023-10-21] VITALS: Ht 162.6 cm; Wt 77.1 kg
[~2023-10-21 07:39] MED LIST changes: +ALBU2.5V7 INH; -DUTA0.5C PO; -FAMO-132 PO; +FINA-37 PO; -LACT1CAP57 PO; -LEVAQUIN PO; +LEVO-62 PO; +NEU300 PO; +SYN50 PO; -TAMS-11 PO
[2023-10-21 07:51] VITALS: BP_SYST 164; PULSE 65; RESP 18; TEMP 98.5; O2SAT 98
[2023-10-21 08:19] LABS: BASOPHILS # (AUTO) 0.1 K/uL (0.0-0.2); BASOPHILS % (AUTO) 1.1 % (0.0-2.0); EOSINOPHILS # (AUTO) 0.5 K/uL (0.0-0.4); EOSINOPHILS % (AUTO) 7.1 % (0.0-4.0); HEMATOCRIT 40.3 % (36-54); HEMOGLOBIN 13.1 g/dL (14.0-18.0); LYMPHOCYTES # (AUTO) 1.8 K/uL (1.0-5.5); LYMPHOCYTES % (AUTO) 27.5 % (20.5-51.5); MEAN CORPUSCULAR HEMOGLOBIN 29 pg (27-31); MEAN CORPUSCULAR HGB CONC 33 % (32-36); MEAN CORPUSCULAR VOLUME 88 fL (79.0-98.0); MONOCYTES # (AUTO) 0.6 K/uL (0.0-1.0); NEUTROPHILS # (AUTO) 3.7 K/uL (1.8-7.7); NEUTROPHILS % (AUTO) 55.3 % (40.0-70.0); PLATELET COUNT (AUTO) 186 K/uL (130-430); RED BLOOD CELL COUNT(AUTO) 4.58 MIL/uL (4.2-6.2); RED CELL DISTRIBUTION WIDTH 14.8 % (9.0-15.0); WHITE BLOOD COUNT (AUTO) 6.7 K/uL (4.8-10.8)
[2023-10-21 08:33] LABS: ALANINE AMINOTRANSFERASE 46 U/L (12-78); ALBUMIN 3.2 g/dL (3.4-4.8); ANION GAP 10 (5-15); ASPARTATE AMINOTRANSFERASE 41 U/L (10-37); BILIRUBIN,DIRECT 0.1 mg/dL (0.0-0.3); CALCIUM 8.3 mg/dL (8.4-11.0); CARBON DIOXIDE 24 mmol/L (23-29); CHLORIDE 102 mmol/L (98-107); CREATININE 1.58 mg/dL (0.55-1.30); GLUCOSE 131 mg/dL (74-106); POTASSIUM 3.9 mmol/L (3.5-5.1); SODIUM SERUM 136 mmol/L (136-145); TOTAL BILIRUBIN 0.5 mg/dL (0.0-1.0); TOTAL PROTEIN, SERUM 6.6 g/dL (6.4-8.3); UREA NITROGEN, BLOOD 18 mg/dL (8-21)
[2023-10-21] MEDS: NACL 0.9% 1,000 ML IV ONE (08:49)
[2023-10-21] MEDS ORDERED: iohexoL 350 mgI/mL, 100 ML INFUS..BTL IV ONE ×2 (08:52→09:23)
[2023-10-21 09:10] LABS: BILIRUBIN,URINE NEGATIVE (NEGATIVE); CLARITY/URINE CLEAR (CLEAR); COLOR,URINE YELLOW (YELLOW); GLUCOSE,URINE NEGATIVE (NEGATIVE); KETONES,URINE NEGATIVE (NEGATIVE); LEUKOCYTE ESTERASE ,URINE NEGATIVE (NEGATIVE); NITRITE, URINE NEGATIVE (NEGATIVE); PH,URINE 6.5 (5.0-8.0); PROTEIN URINE TRACE (NEGATIVE); UROBILINOGEN,URINE 0.2 (0.2-1.0)
[2023-10-21 09:14] LABS: BLOOD, URINE TRACE (NEGATIVE)
[2023-10-21 09:17] LABS: BACTERIA,URINE RARE /HPF (None Seen); MUCUS,URINE 1+ /LPF (None Seen); RBC,URINE 0-3 /HPF (0-3); WBC,URINE 0-3 /HPF (0-3)
[2023-10-21 11:38] VITALS: BP_SYST 163; PULSE 64; RESP 20; TEMP 97.2; O2SAT 97
== END 2023-10-21 11:39 | disposition home or self-care (01) ==
LOC: SED 07:39
DX: E11.40 Type 2 diabetes mellitus with diabetic neuropathy, unspecified (principal); R10.30 Lower abdominal pain, unspecified; I13.0 Hypertensive heart and chronic kidney disease with heart failure and stage 1 through stage 4 chronic kidney disease, or unspecified chronic kidney disease; I50.9 Heart failure, unspecified; N18.9 Chronic kidney disease, unspecified; E11.22 Type 2 diabetes mellitus with diabetic chronic kidney disease; Z88.8 Allergy status to other drugs, medicaments and biological substances; Z79.899 Other long term (current) drug therapy; Z79.2 Long term (current) use of antibiotics
CPT/HCPCS: 99285; 96360; 75635; 80076; 80048; 81001; 83735; 85025; 84484; 36415; 93005; 82948; 83605; Q9967; J7030; 81000; 81015